=== PATIENT | male | born 1960 | race African-American/Black ===

== ENCOUNTER 2017-03-16 20:55 | Emergency (ER) | payer BC ==
[2017-03-16 21:01] VITALS: BP 129/82; PULSE 102; TEMP 98.3; BMI 26.6
--- NOTE | 2017-03-16 21:38 | PDOC ---
History of Present Illness - General Chief Complaint: Pain Stated Complaint: GOUT Time Seen by Provider: 03/16/17 21:25 History Source: Patient Exam Limitations: No Limitations - History of Present Illness Initial Comments: 03/16/17 21:36 56 yr male with uncontrolled DM states he has pain to both feet right more than left for one month. Pt was seen in ER on 03/06/17 for same treated for gout. Pt states the allopurinol does not help the pain. Pt denies fever, has not followed with his PMD for follow up admits to not taking any meds for DM. Severity: reports: mild Past History - Past Medical History Allergies/Adverse Reactions: Allergies Allergy/AdvReac Type Severity Reaction Status Date / Time No Known Allergies Allergy Verified 03/16/17 20:58 Home Medications: Ambulatory Orders Allopurinol [Zyloprim -] 100 mg PO DAILY 03/16/17 Amlodipine/Atorvastatin [Amlodipine-Atorvast 5-20 mg] 1 each PO ASDIR 03/16/17 HTN: Yes Kidney Stones: Yes - Surgical History Abdominal Surgery: Yes (hernia repair) - Suicide/Smoking/Psychosocial Hx Smoking History: Never smoked *Physical Exam - Vital Signs Last Vital Signs Temp Pulse Resp BP Pulse Ox 98.3 F 102 H 16 129/82 100 03/16/17 20:58 03/16/17 20:58 03/16/17 20:58 03/16/17 20:58 03/16/17 20:58 Medical Decision Making - Medical Decision Making 03/16/17 21:37
[2017-03-16] MEDS ORDERED: ACETAMINOPHEN 325 MG TABLET (FP) PO ONE (22:08)
--- NOTE | 2017-03-16 22:11 | PDOC ---
History of Present Illness - General Chief Complaint: Pain Stated Complaint: GOUT Time Seen by Provider: 03/16/17 21:25 History Source: Patient Exam Limitations: No Limitations - History of Present Illness Initial Comments: 03/16/17 22:13 56yo male patient w/ PmHx: Uncontrolled NIDDM, Gout, HLD with recent ED visit for gout flare up, presents to ED c/o Hyperglycemia. Patient states he believes his sugar is elevated because his right foot is beginning to swell. He denies CP, Abd pain, n/v/d, fever, cough, congestion, back pain, diff breathing , rash, dizziness, dysuria, hematuria, rectal bleeding, or any other complaints at this time. Patient was initially seen and evaluated in [facility] and transferred to main ED due to FSBS: Unable to read due to high levels. Severity: Yes: mild Lower Extremity Pain Location: right: ankle Method of Injury: No: unknown, assault, burn, direct blow, fell, incised, motor vehicle accident, sports injury, twisted, other Modifying Factors: improves with: pain medication. worse with: None, cold therapy, immobilization, rest, other Associated Symptoms: See HPI Lower Ext. Injury Location - Specific Injury Location Ankle: right soft tissue tenderness, right pain, right swelling, left non-tender , bilateral no evidence of injury, bilateral normal inspection, bilateral normal range of motion Extremity Pain Location - Extremity Pain Location Extremity Pain Locations: right: ankle Past History - Travel Traveled outside of the country in the last 30 days: No Close contact w/someone who was outside of country & ill: No - Past Medical History Allergies/Adverse Reactions: Allergies Allergy/AdvReac Type Severity Reaction Status Date / Time No Known Allergies Allergy Verified 03/16/17 20:58 Home Medications: Ambulatory Orders Allopurinol [Zyloprim -] 100 mg PO DAILY 03/16/17 Amlodipine/Atorvastatin [Amlodipine-Atorvast 5-20 mg] 1 each PO ASDIR 03/16/17 HTN: Yes Kidney Stones: Yes - Surgical History Abdominal Surgery: Yes (hernia repair) - Suicide/Smoking/Psychosocial Hx Smoking History: Never smoked Review of Systems - Review of Systems Able to Perform ROS?: Yes Is the patient limited Uzbek proficient: No Musculoskeletal: Yes: Joint Pain All Other Systems: Reviewed and Negative *Physical Exam - Vital Signs Last Vital Signs Temp Pulse Resp BP Pulse Ox 98.3 F 102 H 16 129/82 100 03/16/17 20:58 03/16/17 20:58 03/16/17 20:58 03/16/17 20:58 03/16/17 20:58 - Physical Exam General Appearance: Yes: Nourished, Appropriately Dressed. No: Apparent Distress, Mild Distress, Moderate Distress, Severe Distress Respiratory/Chest: positive: Lungs Clear, Normal Breath Sounds. negative: Chest Tender, Respiratory Distress, Accessory Muscle Use, Labored Respiration, Rapid RR, Paradoxal Breathing, Rhonchi, Stridor, Wheezing Cardiovascular: positive: Regular Rhythm, Regular Rate Musculoskeletal: positive: Normal Inspection. negative: CVA Tenderness, CVA Tenderness (R), CVA Tenderness (L), Vertebral Tenderness Extremity: positive: Normal Capillary Refill, Normal Inspection, Normal Range of Motion, Swelling (Right Ankle). 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 *DC/Admit/Observation/Transfer Diagnosis at time of Disposition: Hyperglycemia - Discharge Dispostion Disposition: HOME Condition at time of disposition: Improved Admit: No - Patient Instructions Printed Discharge Instructions: DI for Hyperglycemia -- Adult Additional Instructions: Follow up with your primary care provider this week for further evaluation. You should consider going on insulin at this time. Your blood sugar is not being controlled and you risk other medical problems arising from uncontrolled blood sugar levels. Return if any concerns for further evaluation. Print Language: SLOVAK
[2017-03-16] MEDS ORDERED: SODIUM CHLORIDE 500 ML IV STA (22:29)
--- NOTE | 2017-03-16 22:31 | PDOC ---
*Physical Exam - Vital Signs Last Vital Signs Temp Pulse Resp BP Pulse Ox 98.3 F 102 H 16 129/82 100 03/16/17 20:58 03/16/17 20:58 03/16/17 20:58 03/16/17 20:58 03/16/17 20:58 ED Treatment Course - LABORATORY CBC & Chemistry Diagram: 03/16/17 22:25 03/16/17 22:25 Medical Decision Making - Medical Decision Making 03/16/17 22:31 agree with care from ALEXY Liu *DC/Admit/Observation/Transfer Diagnosis at time of Disposition: Hyperglycemia - Discharge Dispostion Disposition: HOME Condition at time of disposition: Improved - Referrals Referrals: Nick Goodman MD [Primary Care Provider] - - Patient Instructions Printed Discharge Instructions: DI for Hyperglycemia -- Adult Additional Instructions: Follow up with your primary care provider this week for further evaluation. You should consider going on insulin at this time. Your blood sugar is not being controlled and you risk other medical problems arising from uncontrolled blood sugar levels. Return if any concerns for further evaluation. Print Language: MAORI
[2017-03-16 22:37] LABS: BASOPHIL 0.6 % (0-2.0); EOSINOPHIL 1.1 % (0-4.5); MCH 28.3 pg (25.7-33.7); MCHC 34.3 g/dl (32.0-35.9); MEAN CELL VOLUME 82.6 fl (80-96); MEAN PLT VOLUME 7.7 fl (7.5-11.1); NEUTROPHILS 72.7 % (42.8-82.8); PLATELET COUNT 298 K/MM3 (134-434); RDW 14.4 % (11.9-15.9); WHITE BLOOD COUNT 7.4 K/mm3 (4.0-10.0)
[2017-03-16] MEDS ORDERED: ACETAMINOPHEN 325 MG TABLET (FP) ONE (22:50)
[2017-03-16 23:10] LABS: ALBUMIN 4.4 g/dl (3.4-5.0); ANION GAP 11 (8-16); BILIRUBIN,TOTAL 0.5 mg/dL (0.2-1.0); CALCIUM 9.6 mg/dL (8.5-10.1); CO2 27 mmol/L (21-32); CREATININE 2.1 mg/dL (0.7-1.3); SGOT/AST 10 U/L (15-37); SGPT/ALT 27 U/L (12-78); TOT PROT 8.8 g/dl (6.4-8.2)
[2017-03-16 23:11] LABS: ALK PHOS 85 U/L (45-117)
[2017-03-16 23:25] LABS: GLUCOSE,RANDOM 454 mg/dL (74-106)
[2017-03-16] MEDS ORDERED: INSULIN REGULAR HUMAN 100 UNITS/ML *VIAL IVPUSH ONE (23:26)
== END 2017-03-17 01:41 | disposition home or self-care (01) ==
LOC: JERFT 20:55 → JER 20:55
PROC: 3E033VG Introduction of Insulin into Peripheral Vein, Percutaneous Approach (ICD-10-PCS; principal; 2017-03-16)
PROC: 3E0337Z Introduction of Electrolytic and Water Balance Substance into Peripheral Vein, Percutaneous Approach (ICD-10-PCS; 2017-03-16)
DX: E11.65 Type 2 diabetes mellitus with hyperglycemia (principal); E78.5 Hyperlipidemia, unspecified; M10.9 Gout, unspecified
CPT/HCPCS: 36415; 80053; 85025; 99281-25

== ENCOUNTER 2019-05-27 11:04 | Inpatient (IN) | payer BC ==
[2019-05-27] MEDS ORDERED: SODIUM CHLORIDE 1,000 ML IV SCH (13:15)
--- NOTE | 2019-05-27 13:40 | PDOC ---
Documentation entered by Ave Ruiz SCRIBE, acting as scribe for Jm Lucas MD. Jm Lucas MD: This documentation has been prepared by the Sara ochoa Adrianna, SCRIBE, under my direction and personally reviewed by me in its entirety. I confirm that the documentation accurately reflects all work, treatment, procedures, and medical decision making performed by me. Attending Attestation - Resident Resident Name: Jonathon Santos - ED Attending Attestation I have performed the following: I have examined & evaluated the patient, The case was reviewed & discussed with the resident, I agree w/resident's findings & plan, Exceptions are as noted - HPI HPI: The patient is a 58 year old male, with a significant PMH of uncontrolled NIDDM , Gout, HLD, kidney stones, and HTN, who presents to the ED for evaluation of L sided weakness for 2 days. Patient notes he took 60 units of insulin 3 days ago at night(baseline dose is 40 units), and developed left-sided upper and lower extremity weakness the following morning. He notes he now he has difficulty ambulating secondary to the weakness. He waited until today because he wanted to see if he could "fight it off." Patient notes he had a questionable CVA in 2014, and notes his symptoms today were the same as his prior episode but they resolved. His CT head at that time was negative for any acute pathology, but he did not have MRI done reportedly. He was admitted to [facility] at the time. Patient is not on AC daily. Denies headache, dizziness, CP, SOB, F/C, neck pain, abd pain, urinary sxs, rash , LE edema. Denies recent falls. Allergies: NKA, NKDA Surgical History: Abdominal hernia repair Social History: Denies EtOH, tobacco, or illicit drug use PCP: Dr. Melton - Physicial Exam PE: GENERAL: Awake, alert, and fully oriented, in no acute distress HEAD: No signs of trauma EYES: PERRLA, EOMI, sclera anicteric, conjunctiva clear ENT: Oropharynx clear without exudates. Moist mucosa NECK: Normal ROM, supple, no lymphadenopathy, JVD, or masses LUNGS: Breath sounds equal, clear to auscultation bilaterally. No wheezes, and no crackles HEART: Regular rate and rhythm, normal S1 and S2, no murmurs, rubs or gallops ABDOMEN: Soft, nontender, normoactive bowel sounds. No guarding, no rebound. No masses EXTREMITIES: Normal range of motion, no edema. No clubbing or cyanosis. No cords , erythema, or tenderness BACK: No midline spinal tenderness in cervical/thoracic/lumbar region NEUROLOGICAL: +Right-sided naso-labial flattening. +Left upper extremity pronator drift. +4/5 strength of the left upper and lower extremities. Normal speech, normal sensation to light touch in all 4 extremities, normal cerebellar exam, normal reflexes and tone. SKIN: Warm, Dry, normal turgor, no rashes or lesions noted. - Medical Decision Making 05/27/19 15:33 58-year-old male presents to the emergency department with left-sided weakness. Patient hypertensive on arrival found to have right sided nasolabial fold flattening as well as left-sided weakness and left-sided pronator drift concerning for CVA. Patient is out of the TPA window. CT head is negative. Patient has been given a full dose of aspirin and 80 mg of Lipitor. He is not on any blood thinners at home. Plan to obtain MRI, stroke work-up and admit for further management. The hospitalist has been paged for admission, we are awaiting a call back. Heart Score/ECG Review #1 05/27/19 16:02 Twelve-lead EKG was performed and reviewed by me. Normal sinus rhythm, rate 93. Left axis deviation. No ST elevations. T wave inversions in 1, aVL, 2, V2 to V6. ST depressions in 1 and aVL. No previous EKG to compare. NIH Stroke Scale - Last Known Well Date/Time & Onset Date Last Known Well: 05/25/19 Time Last Known Well: 23:00 - Initial Evaluation Level of consciousness: Alert Ask patient the month and their age: Answers both correctly Ask patient to open & close eyes; make fist and let go: Obeys both correctly Best gaze (horizontal eye movement): Normal Visual field testing: No visual field loss Facial paresis (Show teeth/raise eyebrows/close eyes tight): Minor paralysis ( flattened nasolabial fold, asymmetry on smiling) Motor Function: Left Arm: Drift Motor Function: Right Arm: Normal (extends arm 90 (or 45) degrees for 10 seconds without drift Motor Function: Left Leg: Drift Motor Function: Right Leg: Normal (extends leg 30 degrees for 5 seconds without drift) Limb Ataxia: No ataxia Sensory(Use pinprick test arms,legs,trunk,face/side to side): Normal Best language (Describe picture, name items, read sentences): No Aphasia Dysarthria (read several words): Normal articulation Extinction and Inattention: No abnormality - Total Score NIH Stroke Scale Score: 3 ED Treatment Course - LABORATORY CBC & Chemistry Diagram: 05/27/19 14:00 05/27/19 14:00 - ADDITIONAL ORDERS Additional order review: Laboratory Results 05/27/19 05/27/19 05/27/19 14:00 14:00 14:00 PT with INR INR PTT (Actin FS) Sodium 140 Potassium 4.0 Chloride 100 Carbon Dioxide 32 Anion Gap 8 BUN 21.3 H Creatinine 1.5 H Est GFR (CKD-EPI)AfAm 59.05 Est GFR (CKD-EPI)NonAf 50.95 POC Glucometer Random Glucose 154 H Calcium 10.0 Total Bilirubin 0.8 AST 20 ALT 32 Alkaline Phosphatase 76 Creatine Kinase 266 Creatine Kinase Index 1.8 CK-MB (CK-2) 4.8 H Troponin I 0.03 Total Protein 8.6 H Albumin 4.4 Triglycerides Cholesterol Total LDL Cholesterol HDL Cholesterol Blood Type O POSITIVE Antibody Screen Negative 05/27/19 05/27/19 05/27/19 14:00 14:00 12:28 PT with INR 11.30 INR 0.96 PTT (Actin FS) 39.1 H Sodium Potassium Chloride Carbon Dioxide Anion Gap BUN Creatinine Est GFR (CKD-EPI)AfAm Est GFR (CKD-EPI)NonAf POC Glucometer 208 Random Glucose Calcium Total Bilirubin AST ALT Alkaline Phosphatase Creatine Kinase Creatine Kinase Index CK-MB (CK-2) Troponin I Total Protein Albumin Triglycerides 293 H Cholesterol 275 H Total LDL Cholesterol 182 H HDL Cholesterol 42 Blood Type Antibody Screen 05/27/19 05/27/19 14:00 12:28 RBC 6.42 H MCV 84.8 MCHC 33.5 RDW 14.5 MPV 8.1 Neutrophils % 66.9 Lymphocytes % 25.3 D Monocytes % 6.0 Eosinophils % 1.3 Basophils % 0.5 POC Glucometer 208 - RADIOLOGY Radiograph Interpretation: EXAM#: TYPE/EXAM: RESULT: [id number] RAD/CHEST X-RAY PORTABLE* Chest: Stroke Impression: No acute chest pathology. Reported By: John Melgar MD 05/27/19 13:36 EXAM#: TYPE/EXAM: RESULT: [id number] CT/HEAD CT (STROKE) HISTORY PROVIDED: Rule out CVA IMPRESSION: Normal CT scan of the head with no evidence of acute intracranial pathology. Reported By: Ozzy Addison MD 05/27/19 13:50
--- NOTE | 2019-05-27 13:52 | PDOC ---
History of Present Illness - General Chief Complaint: Pain, Acute Stated Complaint: LEG PAIN Time Seen by Provider: 05/27/19 12:05 History Source: Patient Exam Limitations: No Limitations - History of Present Illness Initial Comments: 58 y/o F, pmh of DM, HTN, gout, HLD, previous TIA, presents today to the ED c/o of left sided weakness and fatigue of 3 day duration that started on which has worsened since onset. Pt reports that on he accidentally took an extra half dose of his normal 40 U insulin making it a 60 dose insulin, soon after which he began to experience his symptoms. Pt noticed his weakness and fatigue worsened the next day which prompted him to come in to the ED. He sees Dr. Melton for his DM, and his surgars usually run in the 200's with todays finger stick in the . His BP is also elevated in the Ed to 168/118, which he says has been elevated since switching his BP meds from omesartan to lisinopril. Pt also reports that he was admitted in the past for hypoglycemia and low BP, during which his blood pressure dropped so low he experienced a possible TIA, however, CAT scans and other imaging were negative as per pt. Denies f/c/n/v/d/sob/chest pain/ numbness or tingling, headaches. 05/27/19 13:47 Associated Symptoms: reports: denies symptoms, weakness. denies: chest pain, cough, diaphoresis, fever/chills, headaches, nausea/vomiting, rash, seizure, shortness of breath Aspirin Received prior to arrival: Yes: no aspirin today Past History - Travel Traveled outside of the country in the last 30 days: No Close contact w/someone who was outside of country & ill: No - Past Medical History Allergies/Adverse Reactions: Allergies Allergy/AdvReac Type Severity Reaction Status Date / Time No Known Allergies Allergy Verified 05/27/19 11:13 Home Medications: Ambulatory Orders Dulaglutide [Trulicity] 5 ml SQ WEEKLY 05/27/19 Empagliflozin [Jardiance] 10 mg PO DAILY 05/27/19 Insulin Glargine,Hum.rec.anlog [Lantus Solostar PEN -] 50 units SQ HS 05/27/19 Lisinopril/Hydrochlorothiazide [Lisinopril-Hctz 20-12.5 mg Tab] 1 each PO HS Anemia: No Asthma: No Cancer: No Cardiac Disorders: No Hx Myocardial Infarction: No COPD: No HTN: Yes Kidney Stones: Yes - Surgical History Abdominal Surgery: Yes (hernia repair) - Psycho Social/Smoking Cessation Hx Have you felt down, depressed or hopeless?: No Have you felt little interest or pleasure in doing things?: No Smoking Status: No Smoking History: Never smoked Review of Systems - Review of Systems Able to Perform ROS?: Yes Is the patient limited Israeli proficient: No Constitutional: Yes: Weakness, Weight Stable. No: Chills, Diaphoresis, Fever HEENTM: No: Blurred Vision, Difficulty Swallowing Respiratory: No: Cough, Orthopnea, Shortness of Breath, SOB with Exertion, Wheezing, Productive cough Cardiac (ROS): No: Chest Pain, Irregular Heart Rate ABD/GI: No: Abdominal Distended, Diarrhea, Nausea, Vomiting : No: Dysuria, Discharge Musculoskeletal: No: Gout, Joint Pain Neurological: Yes: Headache, Weakness (left sided weakness), Unsteady Gait ( unsteady on the left side), Ataxia. No: Numbness *Physical Exam - Vital Signs Last Vital Signs Temp Pulse Resp BP Pulse Ox 98.4 F 108 H 18 151/101 H 95 05/27/19 11:14 05/27/19 13:07 05/27/19 12:24 05/27/19 13:07 05/27/19 12:24 - Physical Exam General Appearance: Yes: Appropriately Dressed HEENT: positive: EOMI, SWAPNIL, Normal ENT Inspection, Pharynx Normal Neck: positive: Trachea midline, Normal Thyroid, Supple. negative: Lymphadenopathy (R), Lymphadenopathy (L) Respiratory/Chest: positive: Lungs Clear, Normal Breath Sounds Cardiovascular: positive: Regular Rhythm, Regular Rate, S1, S2. negative: Murmur, Systolic Murmur, Gallop/S3, Gallop/S4 Vascular Pulses: Dorsalis-Pedis (R): 2+, Doralis-Pedis (L): 2+ Gastrointestinal/Abdominal: positive: Normal Bowel Sounds, Soft. negative: Organomegaly Musculoskeletal: positive: Normal Inspection Extremity: positive: Normal Inspection, Normal Range of Motion Neurologic: positive: civil geotechnical engineer II-XII NML intact, Fully Oriented, Alert, Normal Mood/ Affect. negative: Motor Strength 5/5 (Left UE + LE strength 4/5 sensation 5/5, dorsiflexion LE 5/5, plantar flexion LE 5/5, knee flexion 4/5 left sided, gait unsteady favoring right side, romberg sign negative) ED Treatment Course - LABORATORY CBC & Chemistry Diagram: 05/27/19 14:00 05/27/19 14:00 - ADDITIONAL ORDERS Additional order review: Laboratory Results 05/27/19 12:28 POC Glucometer 208 05/27/19 12:28 POC Glucometer 208 Medical Decision Making - Medical Decision Making 58 y/o F, pmh of DM, HTN, gout, HLD, previous TIA, presents today to the ED c/o of left sided weakness and fatigue of 3 day duration that started on which has worsened since onset #Left sided residual deficit + weakness 2/2 to TIA vs CVA vs chronic deficit r/o stroke Head CT ordered CBC, CMP IVF Lipid profile #HTN elevated BP 168/116 will maintain permissive htn #DM BGMs ISS 05/27/19 15:04 05/27/19 15:07 Discharge - Discharge Information Problems reviewed: Yes Clinical Impression/Diagnosis: TIA (transient ischemic attack) CVA (cerebral vascular accident) Qualifiers: CVA mechanism: unspecified Qualified Code(s): I63.9 - Cerebral infarction, unspecified Condition: Stable - Admission Yes - Follow up/Referral - Patient Discharge Instructions - Post Discharge Activity
[2019-05-27 14:23] LABS: BASO % 0.5 % (0-2.0); EOS % 1.3 % (0-4.5); HEMATOCRIT 54.4 % (35.4-49); HEMOGLOBIN 18.2 GM/dL (11.7-16.9); LYMPH % 25.3 % (8-40); MCH 28.4 pg (25.7-33.7); MCHC 33.5 g/dl (32.0-35.9); MEAN CELL VOLUME 84.8 fl (80-96); MEAN PLT VOLUME 8.1 fl (7.5-11.1); NEUT % 66.9 % (42.8-82.8); PLATELET COUNT 243 K/MM3 (134-434); RBC 6.42 M/mm3 (4.00-5.60); RDW 14.5 % (11.9-15.9); WHITE BLOOD COUNT 5.2 K/mm3 (4.0-10.0)
--- NOTE | 2019-05-27 14:30 | EKG ---
Test Reason : Blood Pressure : / mmHG Vent. Rate : 093 BPM Atrial Rate : 093 BPM P-R Int : 148 ms QRS Dur : 090 ms QT Int : 384 ms P-R-T Axes : 037 -34 143 degrees QTc Int : 477 ms NORMAL SINUS RHYTHM POSSIBLE LEFT ATRIAL ENLARGEMENT LEFT AXIS DEVIATION LEFT VENTRICULAR HYPERTROPHY WITH REPOLARIZATION ABNORMALITY NONSPECIFIC ST ABNORMALITY ABNORMAL ECG NO PREVIOUS ECGS AVAILABLE Confirmed by LALO RENEE MD ([id number]) on 05/27/2019 2:30:49 PM Referred By: Confirmed By:LALO RENEE MD
[2019-05-27 14:40] LABS: INR 0.96 (0.83-1.09); PROTHROMBIN TIME (PATIENT) 11.3 SEC (9.7-13.0)
[2019-05-27 14:43] LABS: ACTIVATED PTT 39.1 SECONDS (25.2-36.5)
[2019-05-27 15:20] LABS: ALBUMIN 4.4 g/dl (3.4-5.0); BILIRUBIN,TOTAL 0.8 mg/dL (0.2-1); BLOOD UREA NITROGEN 21.3 mg/dL (7-18); CREATININE 1.5 mg/dL (0.55-1.3); TOT PROT 8.6 g/dl (6.4-8.2)
[2019-05-27 15:21] LABS: CHOLESTEROL 275 mg/dL (50-200); HDL CHOLESTEROL 42 mg/dL (40-60); LDL CHOLESTEROL (ONLY SJRH) 182 mg/dL (5-100); TRIGLYCERIDES 293 mg/dL (0-150)
[2019-05-27] MEDS ORDERED: ATORVASTATIN CA 80 MG TABLET (FP) PO ONE (15:38)
[2019-05-27] MEDS ORDERED: ASPIRIN 325 MG TABLET PO ONE (15:38)
[2019-05-27] MEDS ORDERED: ASPIRIN 325 MG ENTERIC COATED TABLET (FP) ONE (16:11)
[2019-05-27] MEDS ORDERED: ATORVASTATIN CA 80 MG TABLET (FP) ONE (16:13)
--- NOTE | 2019-05-27 18:14 | HP ---
CHIEF COMPLAINT: Weakness PCP: HISTORY OF PRESENT ILLNESS: 58 y/o M with PMHx of CVA (Residual LLE weakness since 2015), DM with neuropathy , HTN, HLD, Gout presents from home with b/l feet pain and worsening left sided weakness. Patient was in his usual state of health on Wednesday evening. Patient endorses that he does not take his medications as prescribed and on took Trulicity (typically scheduled for wednesday) and 60u Lantus HS ( typically takes 40). On wednesday, he woke with b/l LE Weakness L>R requiring a cane to ambulate, and this prompted him to stop taking all his meds. Wednesday evening he took 45u Lantus. Wednesday morning he woke at 6am with a 9/10 burning pain; Extended from his foot to his knee on the right and encompassed his entire left side. He then tried to perform his ADL's but was unable to do so because of excessive weakness and inability to balance while ambulate prompting him to visit the ED. His only additional complaint is a mild headache, 3/10 that has resolved. Patient mentions his hx of CVA however he feels much different from then. Patient has recently changed PCP's to Dr. Melton. He switched from Benicar to Lisinopril at the advice of his peridontist 1 year ago however he mentions his BP readings are typically high. Denies any recent fevers, chills, chest pain, SOB, nausea, vomiting, diarrhea, constipation. ER course was notable for: (1) NS @ 42, ASA 325, Lipitor 80 (2) (3) Recent Travel: Denies PAST MEDICAL HISTORY: As above PAST SURGICAL HISTORY: Right umbilical hernia repair Lithotripsy Social History: Smoking: Denies Alcohol: Occasional Drugs: Denies Occupation: Retired Ambulation: Without assistance normally; Occasionally with cane when having gout flares Residence: Home with Allergies No Known Allergies Allergy (Verified 05/27/19 11:13) HOME MEDICATIONS: Home Medications Medication Instructions Recorded Dulaglutide [Trulicity] 5 ml SQ WEEKLY 05/27/19 Empagliflozin [Jardiance] 10 mg PO DAILY 05/27/19 Insulin Glargine,Hum.rec.anlog 45 units SQ HS 05/27/19 [Lantus Solostar PEN -] Lisinopril/Hydrochlorothiazide 1 each PO HS 05/27/19 [Lisinopril-Hctz 20-12.5 mg Tab] REVIEW OF SYSTEMS As per HPI PHYSICAL EXAMINATION Vital Signs - 24 hr 05/27/19 05/27/19 05/27/19 11:14 12:24 13:07 Temperature 98.4 F Pulse Rate 98 H Pulse Rate [ Apical] Pulse Rate [ 94 H 108 H Left Brachial] Respiratory 16 18 Rate Blood Pressure 169/118 H Blood Pressure 168/116 H 151/101 H [Left Arm] O2 Sat by Pulse 99 95 Oximetry (%) 05/27/19 05/27/19 05/27/19 13:08 14:08 14:30 Temperature Pulse Rate Pulse Rate [ 85 Apical] Pulse Rate [ 92 H Left Brachial] Respiratory 18 13 Rate Blood Pressure Blood Pressure 161/109 H 150/108 H [Left Arm] O2 Sat by Pulse 100 98 97 Oximetry (%) 05/27/19 05/27/19 16:00 16:28 Temperature Pulse Rate Pulse Rate [ 88 88 Apical] Pulse Rate [ Left Brachial] Respiratory Rate Blood Pressure Blood Pressure 179/113 H 173/106 H [Left Arm] O2 Sat by Pulse Oximetry (%) GENERAL: A&Ox3, NAD HEAD: NCAT EYES: PERRL, EOMI EARS, NOSE, THROAT: Uvula Midline, MMM NECK: No JVD LUNGS: CTAB, No wheezes, no crackles HEART: Regular rate and rhythm, normal S1 and S2 without murmur ABDOMEN: Soft, nontender, not distended, + bowel sounds, no guarding MUSCULOSKELETAL: No CVA tenderness. EXTREMITIES: No peripheral edema. NEUROLOGICAL: Cranial nerves II-XII intact. Normal speech. Mild diminished sensation over left lateral C8 dermatome extending only over his left hand, otherwise gross sensation intact throughout. 2/5 muscle strength in the LLE, otherwise 5/5 muscle strength throughout. Unable to perform Heel to mercado on the left side; right side intact. NIHSS 5. SKIN: Warm, dry Laboratory Results - last 24 hr 05/27/19 05/27/19 05/27/19 12:28 14:00 14:00 WBC RBC Hgb Hct MCV MCH MCHC RDW Plt Count MPV Absolute Neuts (auto) Neutrophils % Lymphocytes % Monocytes % Eosinophils % Basophils % Nucleated RBC % PT with INR 11.30 INR 0.96 PTT (Actin FS) 39.1 H Sodium Potassium Chloride Carbon Dioxide Anion Gap BUN Creatinine Est GFR (CKD-EPI)AfAm Est GFR (CKD-EPI)NonAf POC Glucometer 208 Random Glucose Calcium Total Bilirubin AST ALT Alkaline Phosphatase Creatine Kinase Creatine Kinase Index CK-MB (CK-2) Troponin I Total Protein Albumin Triglycerides 293 H Cholesterol 275 H Total LDL Cholesterol 182 H HDL Cholesterol 42 Blood Type Antibody Screen 05/27/19 05/27/19 05/27/19 14:00 14:00 14:00 WBC 5.2 RBC 6.42 H Hgb 18.2 H Hct 54.4 H D MCV 84.8 MCH 28.4 MCHC 33.5 RDW 14.5 Plt Count 243 MPV 8.1 Absolute Neuts (auto) 3.5 Neutrophils % 66.9 Lymphocytes % 25.3 D Monocytes % 6.0 Eosinophils % 1.3 Basophils % 0.5 Nucleated RBC % 0 PT with INR INR PTT (Actin FS) Sodium Potassium Chloride Carbon Dioxide Anion Gap BUN Creatinine Est GFR (CKD-EPI)AfAm Est GFR (CKD-EPI)NonAf POC Glucometer Random Glucose Calcium Total Bilirubin AST ALT Alkaline Phosphatase Creatine Kinase 266 Creatine Kinase Index 1.8 CK-MB (CK-2) 4.8 H Troponin I 0.03 Total Protein Albumin Triglycerides Cholesterol Total LDL Cholesterol HDL Cholesterol Blood Type O POSITIVE Antibody Screen Negative 05/27/19 14:00 WBC RBC Hgb Hct MCV MCH MCHC RDW Plt Count MPV Absolute Neuts (auto) Neutrophils % Lymphocytes % Monocytes % Eosinophils % Basophils % Nucleated RBC % PT with INR INR PTT (Actin FS) Sodium 140 Potassium 4.0 Chloride 100 Carbon Dioxide 32 Anion Gap 8 BUN 21.3 H Creatinine 1.5 H Est GFR (CKD-EPI)AfAm 59.05 Est GFR (CKD-EPI)NonAf 50.95 POC Glucometer Random Glucose 154 H Calcium 10.0 Total Bilirubin 0.8 AST 20 ALT 32 Alkaline Phosphatase 76 Creatine Kinase Creatine Kinase Index CK-MB (CK-2) Troponin I Total Protein 8.6 H Albumin 4.4 Triglycerides Cholesterol Total LDL Cholesterol HDL Cholesterol Blood Type Antibody Screen Home Medications Medication Instructions Recorded Dulaglutide [Trulicity] 5 ml SQ WEEKLY 05/27/19 Empagliflozin [Jardiance] 10 mg PO DAILY 05/27/19 Insulin Glargine,Hum.rec.anlog 50 units SQ HS 12/21/19 [Lantus Solostar PEN -] Lisinopril/Hydrochlorothiazide 1 each PO HS 05/27/19 [Lisinopril-Hctz 20-12.5 mg Tab] Active Medications Aspirin (Asa -) 81 mg PO DAILY BECKY Atorvastatin Calcium (Lipitor -) 80 mg PO HS BECKY Sodium Chloride (Normal Saline -) 1,000 mls @ 42 mls/hr IV ASDIR BECKY Last Admin: 05/27/19 13:50 Dose: 42 mls/hr Insulin Aspart (Novolog Vial Sliding Scale -) 1 vial SQ ACHS BECKY; Protocol Non-Formulary Medication (Lisinopril/Hydrochlorothiazide [Lisinopril-Hctz 20- 12.5 Mg Tab]) 1 each PO DAILY BECKY ASSESSMENT/PLAN: 58 y/o M with PMHx of CVA (Residual LLE weakness since 2014), DM with neuropathy , HTN, HLD, Gout presents from home with b/l feet pain and worsening left sided weakness. #Burning foot pain b/l with worsening left sided weakness -Concerning for CVA -CT head unrevealing -EKG--NSR, LVH, LAE, LAD, VR 93, QTc 477 -Given ASA 325mg PO x 1, Lipitor 80mg; Continue ASA 81mg daily, Lipitor 80mg daily -Neuro (Dr. Pérez) consulted; Case discussed and agree's with restarting home BP Meds -Check Echo, Carotid Dopplers, Brain MRI/MRA, B12, TSH -Tele -Bedrest, Seizure/Dysphagia/fall precautions, Keep HOB Elevated, Neurochecks -Physical Therapy -Keep NPO until Speech and swallow eval #DM with neuropathy -Possibly Acute flare of neuropathic pain -Hold home dose hypoglycemics -ISS BGMs ACHS, Levemir 30u HS -Gabapentin 300mg BID -Check A1c #HTN, Uncontrolled -Continue home dose Lisinopril, Hydrochlorothiazide -Will consider adding on Norvasc if remains elevated #CKD stage 3 -Cr 1.5. Will reach out to PCP for baseline Cr and consider further workup (UA, Imaging) at that juncture #Polycythemia -Unclear Etiology -Hematology (Dr. Santillan) Consulted #HLD -Continue high dose statin therapy #Gout -Currently not in acute flare, Continue to monitor #FEN -NS @ 42 -Replete Lytes PRN -NPO until speech and swallow eval #PPx -DVT: SCDs Dispo: Admit to Stroke unit ADDENDUM: Informed at 19:40 that MRI Imaging transaction advisory services manager read reveals punctate acute infarction of the right anterior aspects of the medulla oblongata and few small chronic lacunar infartc involving the vy. Case discussed with Dr. Pérez who says to continue ASA, Statin and Normotensive BP. Visit type - Emergency Visit Emergency Visit: Yes ED Registration Date: 05/27/19 Care time: The patient presented to the Emergency Department on the above date and was hospitalized for further evaluation of their emergent condition. - New Patient This patient is new to me today: Yes Date on this admission: 05/28/19 - Critical Care Critical Care patient: No ATTENDING PHYSICIAN STATEMENT I saw and evaluated the patient. I reviewed the resident's note and discussed the case with the resident. I agree with the resident's findings and plan as documented. SUBJECTIVE: OBJECTIVE: ASSESSMENT AND PLAN:
--- NOTE | 2019-05-27 18:31 | PN ---
Teaching Attending Note Name of Resident: Ladi Elliott ATTENDING PHYSICIAN STATEMENT I saw and evaluated the patient. I reviewed the resident's note and discussed the case with the resident. I agree with the resident's findings and plan as documented. SUBJECTIVE: Complains of burning pains R foot (up to ankle) and LUE/LLE along with weakness LLE preventing ambulation. No headache/visual disturbance/nausea/ vomiting. No CP/palpitations/SOB OBJECTIVE: Afebrile, Hemodynamically Stable. Last Vital Signs Temp Pulse Resp BP Pulse Ox 98.2 F 18 L 98 H 169/78 97 05/27/19 17:15 05/27/19 17:15 05/27/19 17:15 05/27/19 17:15 05/27/19 14:30 HEENT - Atraumatic, normocephalic. Heart - S1, S2, soft SM Lungs - clear to auscultation Abdomen - Soft, non-tender. Bowel Sounds normal Extremities - no edema, no calf tenderness. Neuro -AAO x 3. Power reduced 4/5 LLE. Power other extremities normal. Sensory dysthesia LUE/LUE and R foot. Laboratory Results - last 24 hr 05/27/19 05/27/19 05/27/19 12:28 14:00 14:00 WBC RBC Hgb Hct MCV MCH MCHC RDW Plt Count MPV Absolute Neuts (auto) Neutrophils % Lymphocytes % Monocytes % Eosinophils % Basophils % Nucleated RBC % PT with INR 11.30 INR 0.96 PTT (Actin FS) 39.1 H Sodium Potassium Chloride Carbon Dioxide Anion Gap BUN Creatinine Est GFR (CKD-EPI)AfAm Est GFR (CKD-EPI)NonAf POC Glucometer 208 Random Glucose Calcium Total Bilirubin AST ALT Alkaline Phosphatase Creatine Kinase Creatine Kinase Index CK-MB (CK-2) Troponin I Total Protein Albumin Triglycerides 293 H Cholesterol 275 H Total LDL Cholesterol 182 H HDL Cholesterol 42 Blood Type Antibody Screen 05/27/19 05/27/19 05/27/19 14:00 14:00 14:00 WBC 5.2 RBC 6.42 H Hgb 18.2 H Hct 54.4 H D MCV 84.8 MCH 28.4 MCHC 33.5 RDW 14.5 Plt Count 243 MPV 8.1 Absolute Neuts (auto) 3.5 Neutrophils % 66.9 Lymphocytes % 25.3 D Monocytes % 6.0 Eosinophils % 1.3 Basophils % 0.5 Nucleated RBC % 0 PT with INR INR PTT (Actin FS) Sodium Potassium Chloride Carbon Dioxide Anion Gap BUN Creatinine Est GFR (CKD-EPI)AfAm Est GFR (CKD-EPI)NonAf POC Glucometer Random Glucose Calcium Total Bilirubin AST ALT Alkaline Phosphatase Creatine Kinase 266 Creatine Kinase Index 1.8 CK-MB (CK-2) 4.8 H Troponin I 0.03 Total Protein Albumin Triglycerides Cholesterol Total LDL Cholesterol HDL Cholesterol Blood Type O POSITIVE Antibody Screen Negative 05/27/19 14:00 WBC RBC Hgb Hct MCV MCH MCHC RDW Plt Count MPV Absolute Neuts (auto) Neutrophils % Lymphocytes % Monocytes % Eosinophils % Basophils % Nucleated RBC % PT with INR INR PTT (Actin FS) Sodium 140 Potassium 4.0 Chloride 100 Carbon Dioxide 32 Anion Gap 8 BUN 21.3 H Creatinine 1.5 H Est GFR (CKD-EPI)AfAm 59.05 Est GFR (CKD-EPI)NonAf 50.95 POC Glucometer Random Glucose 154 H Calcium 10.0 Total Bilirubin 0.8 AST 20 ALT 32 Alkaline Phosphatase 76 Creatine Kinase Creatine Kinase Index CK-MB (CK-2) Troponin I Total Protein 8.6 H Albumin 4.4 Triglycerides Cholesterol Total LDL Cholesterol HDL Cholesterol Blood Type Antibody Screen Current Medications Generic Name Dose Route Start Last Admin Trade Name Freq PRN Reason Stop Dose Admin Aspirin 81 mg 05/28/19 10:00 Asa - PO DAILY BECKY Atorvastatin Calcium 80 mg 05/28/19 22:00 Lipitor - PO HS [facility] Sodium Chloride 1,000 mls @ 42 mls/hr 05/27/19 13:15 05/27/19 13:50 Normal Saline - IV 42 mls/hr ASDIR [facility] Administration Insulin Aspart 1 vial 05/27/19 22:00 Novolog Vial Sliding Scale - SQ ACHS [facility] Protocol Home Medications Medication Instructions Recorded Dulaglutide [Trulicity] 5 ml SQ WEEKLY 05/27/19 Empagliflozin [Jardiance] 10 mg PO DAILY 05/27/19 Insulin Glargine,Hum.rec.anlog 45 units SQ HS 05/27/19 [Lantus Solostar PEN -] Lisinopril/Hydrochlorothiazide 1 each PO HS 05/27/19 [Lisinopril-Hctz 20-12.5 mg Tab] ASSESSMENT AND PLAN: 58 year old male with history of prior CVA with some residual LLE weakness ( ambulates independently), DM 2 with Neuropathy, HTN, HLD, Gout, CKD, presents after waking this AM with bilateral LE and LUE burning and tingling sensation along with worsening LLE weakness precluding independent ambulation. He admits to random and erratic compliance with all medications including insulin and DM 2 meds. 1. Acute Flare of Diabetic Neuropathy, non-focal Neurology consult. Will start Gabapentin pending Neurology evaluation TSH, B12 levels requested. 2. Worsening LLE weakness - given CVA history, will need to exclude acute CVA. CT head - no acute findings. ECG - NSR, LVH with repolarization abnormalities. Echo, Carotid Duplex, MRI/MRA Head ordered. Telemonitoring Neurochecks. Given non-compliance with ASA, patient was loaded in ED. Continue Aspirin and high dose Statin (LDL 182) Neurology consulted. PT/ST 3. DM 2 with Peripheral Neuropathy Hold Jardiance and Trulicity. Maintain on Levemir/Novolog sliding scale. A1C requested. 4. HTN - Uncontrolled BP currently -will resume HCTZ /Lisinopril and monitor on Tele. May need escalation of anti-hypertensive regimen to include BB and/or CCB. 5. CKD 3 - Creat 1.5. Last Creat in med record 2.1 in 2017. Will need baseline Creat from PCP. Will continue LENI-I/Diuretic for now pending baseline Creat determination. DVT Px - Heparin SQ.
[2019-05-27] MEDS ORDERED: PATIENT'S OWN MEDICATION (NON-FORMULARY) (Lisinopril/Hydrochlorothiazide [Lisinopril-Hctz PO SCH (18:45)
[2019-05-27 19:02] VITALS: BMI 28.2
[2019-05-27] MEDS: LISINOPRIL 20 MG TABLET (FP) PO SCH (19:14)
[2019-05-27] MEDS: HYDROCHLOROTHIAZIDE 12.5 MG CAPSULE (FP) PO SCH (19:14)
[2019-05-27] MEDS: GABAPENTIN 300 MG CAPSULE PO SCH (22:24)
[2019-05-27] MEDS: INSULIN SLIDING SCALE (NOVOLOG) 1 VIAL SQ SCH (22:25)
[2019-05-27] MEDS: INSULIN (LEVEMIR) 100 UNITS/ML UNITS SQ SCH (22:25)
[2019-05-28] MEDS ORDERED: PNEUMOC 13-VAL CONJ-DIP CRM/PF 0.5 ML DISP.SYRIN IM ONE (05:20)
[2019-05-28] MEDS: INSULIN SLIDING SCALE (NOVOLOG) 1 VIAL SQ SCH ×4 (06:31→21:38)
[2019-05-28 07:07] LABS: BASO % 0.4 % (0-2.0); HEMATOCRIT 48.3 % (35.4-49); HEMOGLOBIN 16.3 GM/dL (11.7-16.9); LYMPH % 30.9 % (8-40); MCH 28.5 pg (25.7-33.7); MCHC 33.7 g/dl (32.0-35.9); MEAN CELL VOLUME 84.7 fl (80-96); MEAN PLT VOLUME 7.8 fl (7.5-11.1); MONO % 7.5 % (3.8-10.2); NEUT % 59.2 % (42.8-82.8); PLATELET COUNT 205 K/MM3 (134-434); RDW 14.6 % (11.9-15.9); WHITE BLOOD COUNT 4.6 K/mm3 (4.0-10.0)
[2019-05-28 07:46] LABS: ALBUMIN 3.4 g/dl (3.4-5.0); BILIRUBIN,TOTAL 0.9 mg/dL (0.2-1); BLOOD UREA NITROGEN 19.8 mg/dL (7-18); CALCIUM 8.5 mg/dL (8.5-10.1); CREATININE 1.4 mg/dL (0.55-1.3); MAGNESIUM 2.2 mg/dL (1.8-2.4); PHOSPHOROUS 3.6 mg/dL (2.5-4.9); POTASSIUM 3.6 mmol/L (3.5-5.1); TOT PROT 6.8 g/dl (6.4-8.2)
[2019-05-28] MEDS ORDERED: PNEUMOCOCCAL 23 VACCINE 0.5 ML VIAL IM ONE (08:15)
[2019-05-28] MEDS ORDERED: SODIUM CHLORIDE 1,000 ML IV SCH (08:45)
[2019-05-28] MEDS ORDERED: FLU VACCINE QUAD 60 MCG/0.5 ML (MDV 19-20) IM ONE (10:00)
[2019-05-28] MEDS: ASPIRIN 81 MG CHEWABLE TABLETS PO SCH (11:06)
[2019-05-28] MEDS: GABAPENTIN 300 MG CAPSULE PO SCH ×2 (11:06→21:38)
--- NOTE | 2019-05-28 12:20 | CON.NEURO ---
Consult - Alcohol/Substance Use Hx Alcohol Use: Yes (occasional) - Smoking History Smoking history: Never smoked Home Medications - Allergies Allergies/Adverse Reactions: Allergies Allergy/AdvReac Type Severity Reaction Status Date / Time No Known Allergies Allergy Verified 05/27/19 11:13 - Home Medications Home Medications: Ambulatory Orders Dulaglutide [Trulicity] 5 ml SQ WEEKLY 05/27/19 Empagliflozin [Jardiance] 10 mg PO DAILY 05/27/19 Insulin Glargine,Hum.rec.anlog [Lantus Solostar PEN -] 50 units SQ HS 05/27/19 Lisinopril/Hydrochlorothiazide [Lisinopril-Hctz 20-12.5 mg Tab] 1 each PO HS Physical Exam-Neuro Vital Signs: Vital Signs Temperature 98.1 F 05/28/19 05:00 Pulse Rate 88 05/28/19 05:00 Respiratory Rate 20 05/28/19 05:00 Blood Pressure 159/96 05/28/19 05:00 O2 Sat by Pulse Oximetry (%) 95 05/27/19 20:44 Labs: CBC, BMP 05/28/19 06:20 05/28/19 06:20 INR, PTT INR 0.96 (0.83-1.09) 05/27/19 14:00 Assessment/Plan CC Left sided hemiparesis since May 26 HPI 58 yea rold male with histor of DM, Neuropahty, HTN,HLD, Gout , stroke . Patient has stroke when he went to [facility] last year for ? newly diagnosed dm. He says he took extra dose of insulin and wok eup with left sided hemiparesis. According to patient has has ? stroke in past bu the recovered completely. He is retired as realtor, denies smoking and lives with his in [place]. Patient has mri don and it showed there is right medulla ischemic lesion . There is left sided vertebral narrowing , which does not matches to mri lesion on right side. PAST MEDICAL HISTORY: As above PAST SURGICAL HISTORY: Right umbilical hernia repair Lithotripsy Social History: Smoking: Denies Alcohol: Occasional Drugs: Denies Occupation: Retired Ambulation: Without assistance normally; Occasionally with cane when having gout flares Residence: Home with Allergies No Known Allergies Allergy (Verified 05/27/19 11:13) HOME MEDICATIONS: Home Medications Medication Instructions Recorded Dulaglutide [Trulicity] 5 ml SQ WEEKLY 05/27/19 Empagliflozin [Jardiance] 10 mg PO DAILY 05/27/19 Insulin Glargine,Hum.rec.anlog 45 units SQ HS 05/27/19 [Lantus Solostar PEN -] Lisinopril/Hydrochlorothiazide 1 each PO HS 05/27/19 [Lisinopril-Hctz 20-12.5 mg Tab] ROS,FH,SH reviwed in chart NEUROLOGICAL EXAMINATION Alert oriented x 3, speech is normal, eomi, puils reactiv jigna face asymmetry moving all ext sensation is diminished on left side ct head unremarkable mri of brain showed right medullary ischemic tania, mra of brain , left verbebral narrowing ( does not coorelate with ischemic lesion) Assessment/Plan Right medullary ischemic syndrome, 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
--- NOTE | 2019-05-28 13:08 | PN ---
Physical Exam: SUBJECTIVE: Patient seen and examined, upset that is not able to eat. Still with ongoing left sided weakness and decreased sensation and thinks its because "he has not eaten". Chronic burning both legs, no recent change. OBJECTIVE: Vital Signs Period Temp Pulse Resp BP Sys/Green Pulse Ox Last 24 Hr 97.4 F-98.2 F 18-108 13-98 149-179/78-125 95-100 Intake & Output 05/25/19 05/26/19 05/27/19 05/28/19 23:59 23:59 23:59 23:59 Intake Total 426 Balance 426 Weight 225 lb 12.8 oz 231 lb 4 oz GENERAL: sitting in bed, no acute distress Neck: soft, supple HEENT: PERRL, EOMI Chest: CTAB, no rales or wheezing Abdomen: soft, obese, NT Extremities: no edema Neuro: AAOx3, facial symmetry, tongue midline, speech normal no uvular deviation , decreased sensation left side of face/LUE/LLE, power 4+/5 LLE/LUE, Right 5/5, shoulder shrug 4+/5 left side, toes downgoing, EOMI, PERRL, no nystagmus, left sided pronator drift Laboratory Results - last 24 hr 05/27/19 05/27/19 05/27/19 14:00 14:00 14:00 WBC RBC Hgb Hct MCV MCH MCHC RDW Plt Count MPV Absolute Neuts (auto) Neutrophils % Lymphocytes % Monocytes % Eosinophils % Basophils % Nucleated RBC % PT with INR 11.30 INR 0.96 PTT (Actin FS) 39.1 H Sodium Potassium Chloride Carbon Dioxide Anion Gap BUN Creatinine Est GFR (CKD-EPI)AfAm Est GFR (CKD-EPI)NonAf POC Glucometer Random Glucose Hemoglobin A1c % Calcium Phosphorus Magnesium Total Bilirubin AST ALT Alkaline Phosphatase Creatine Kinase Creatine Kinase Index CK-MB (CK-2) Troponin I Total Protein Albumin Triglycerides 293 H Cholesterol 275 H Total LDL Cholesterol 182 H HDL Cholesterol 42 Vitamin B12 TSH Blood Type O POSITIVE Antibody Screen Negative 05/27/19 05/27/19 05/27/19 14:00 14:00 14:00 WBC 5.2 RBC 6.42 H Hgb 18.2 H Hct 54.4 H D MCV 84.8 MCH 28.4 MCHC 33.5 RDW 14.5 Plt Count 243 MPV 8.1 Absolute Neuts (auto) 3.5 Neutrophils % 66.9 Lymphocytes % 25.3 D Monocytes % 6.0 Eosinophils % 1.3 Basophils % 0.5 Nucleated RBC % 0 PT with INR INR PTT (Actin FS) Sodium 140 Potassium 4.0 Chloride 100 Carbon Dioxide 32 Anion Gap 8 BUN 21.3 H Creatinine 1.5 H Est GFR (CKD-EPI)AfAm 59.05 Est GFR (CKD-EPI)NonAf 50.95 POC Glucometer Random Glucose 154 H Hemoglobin A1c % Calcium 10.0 Phosphorus Magnesium Total Bilirubin 0.8 AST 20 ALT 32 Alkaline Phosphatase 76 Creatine Kinase 266 Creatine Kinase Index 1.8 CK-MB (CK-2) 4.8 H Troponin I 0.03 Total Protein 8.6 H Albumin 4.4 Triglycerides Cholesterol Total LDL Cholesterol HDL Cholesterol Vitamin B12 TSH Blood Type Antibody Screen 05/27/19 05/27/19 05/28/19 20:35 22:21 05:35 WBC RBC Hgb Hct MCV MCH MCHC RDW Plt Count MPV Absolute Neuts (auto) Neutrophils % Lymphocytes % Monocytes % Eosinophils % Basophils % Nucleated RBC % PT with INR INR PTT (Actin FS) Sodium Potassium Chloride Carbon Dioxide Anion Gap BUN Creatinine Est GFR (CKD-EPI)AfAm Est GFR (CKD-EPI)NonAf POC Glucometer 195 157 Random Glucose Hemoglobin A1c % Calcium Phosphorus Magnesium Total Bilirubin AST ALT Alkaline Phosphatase Creatine Kinase Creatine Kinase Index CK-MB (CK-2) Troponin I Total Protein Albumin Triglycerides Cholesterol Total LDL Cholesterol HDL Cholesterol Vitamin B12 TSH Blood Type O POSITIVE Antibody Screen 05/28/19 05/28/19 05/28/19 06:20 06:20 06:20 WBC 4.6 RBC 5.70 H Hgb 16.3 Hct 48.3 MCV 84.7 MCH 28.5 MCHC 33.7 RDW 14.6 Plt Count 205 MPV 7.8 Absolute Neuts (auto) 2.7 Neutrophils % 59.2 Lymphocytes % 30.9 D Monocytes % 7.5 Eosinophils % 2.0 Basophils % 0.4 Nucleated RBC % 1 H PT with INR INR PTT (Actin FS) Sodium 141 Potassium 3.6 Chloride 107 Carbon Dioxide 27 Anion Gap 7 L BUN 19.8 H Creatinine 1.4 H Est GFR (CKD-EPI)AfAm 64.18 Est GFR (CKD-EPI)NonAf 55.38 POC Glucometer Random Glucose 162 H Hemoglobin A1c % 8.8 H Calcium 8.5 Phosphorus 3.6 Magnesium 2.2 Total Bilirubin 0.9 AST 20 ALT 27 Alkaline Phosphatase 61 Creatine Kinase Creatine Kinase Index CK-MB (CK-2) Troponin I Total Protein 6.8 Albumin 3.4 Triglycerides Cholesterol Total LDL Cholesterol HDL Cholesterol Vitamin B12 892 TSH 0.86 Blood Type Antibody Screen 05/28/19 11:55 WBC RBC Hgb Hct MCV MCH MCHC RDW Plt Count MPV Absolute Neuts (auto) Neutrophils % Lymphocytes % Monocytes % Eosinophils % Basophils % Nucleated RBC % PT with INR INR PTT (Actin FS) Sodium Potassium Chloride Carbon Dioxide Anion Gap BUN Creatinine Est GFR (CKD-EPI)AfAm Est GFR (CKD-EPI)NonAf POC Glucometer 270 Random Glucose Hemoglobin A1c % Calcium Phosphorus Magnesium Total Bilirubin AST ALT Alkaline Phosphatase Creatine Kinase Creatine Kinase Index CK-MB (CK-2) Troponin I Total Protein Albumin Triglycerides Cholesterol Total LDL Cholesterol HDL Cholesterol Vitamin B12 TSH Blood Type Antibody Screen Active Medications Home Medications Medication Instructions Recorded Dulaglutide [Trulicity] 5 ml SQ WEEKLY 05/27/19 Empagliflozin [Jardiance] 10 mg PO DAILY 05/27/19 Insulin Glargine,Hum.rec.anlog 50 units SQ HS 05/27/19 [Lantus Solostar PEN -] Lisinopril/Hydrochlorothiazide 1 each PO HS 05/27/19 [Lisinopril-Hctz 20-12.5 mg Tab] Generic Name Dose Route Start Last Admin Trade Name Freq PRN Reason Stop Dose Admin Aspirin 81 mg 05/28/19 10:00 05/28/19 11:06 Asa - PO 81 mg DAILY BECKY Administration Atorvastatin Calcium 80 mg 05/28/19 22:00 Lipitor - PO HS BECKY Gabapentin 300 mg 05/27/19 22:00 05/28/19 11:06 Neurontin - PO 300 mg BID BECKY Administration Hydrochlorothiazide 12.5 mg 05/27/19 18:45 05/27/19 19:14 Hctz - PO 12.5 mg DAILY BECKY Administration Sodium Chloride 1,000 mls @ 75 mls/hr 05/28/19 08:45 05/28/19 11:10 Normal Saline - IV 75 mls/hr ASDIR BECKY Administration Insulin Aspart 1 vial 05/27/19 22:00 05/28/19 06:31 Novolog Vial Sliding Scale - SQ Not Given ACHS BECKY Protocol Insulin Detemir 30 units 05/27/19 22:00 05/27/19 22:25 Levemir Vial SQ Not Given HS REPLACED BY [facility] Lisinopril 20 mg 05/27/19 18:45 05/27/19 19:14 Prinivil PO 20 mg DAILY BECKY Administration Telemetry: NSR, occasional PVCs MRI brain/MRA head results reviewed ASSESSMENT/PLAN: 58 year old male with history of prior CVA with some residual LLE weakness ( ambulates independently), DM 2 with Neuropathy, HTN, HLD, Gout, CKD, presents after waking this AM with bilateral LE and LUE burning and tingling sensation along with worsening LLE weakness precluding independent ambulation. He admits to random and erratic compliance with all medications including insulin and DM 2 meds. -Acute right medullar oblongata CVA -?vertebral artery narrowing -Severe diabetic neuropathy -IDDM -Uncontrolled HTN -CKD stage III (last cr 2.1 in 2017) Plan: Neurology input noted. MRA head noted, however vertebral artery ?narrowing does not corelate with current CVA. MRA neck. ASA/statin. Lipid panel/A1c Permissive HTN x 24 hours, resume ACEi/HCTZ in 24 hours based on BP readings and renal function. Follow up 2D echo. Cleared bedside swallow eval, Patient insists on regular diet, relays understanding of risks of aspiration. at bedside. Continue with close monitoring. Speech/Swallow eval. Trend renal function. Outpatient follow up. Home BP monitoring and medication compliance counseling. levemir, ISS. gabapentin started DVTPPX heparin PT eval noted, for acute rehab Dispo to rehab pending above w/u and clinical course. Plan discussed in detail with patient and at bedside, all questions answered. Visit type - Emergency Visit Emergency Visit: Yes ED Registration Date: 05/27/19 Care time: The patient presented to the Emergency Department on the above date and was hospitalized for further evaluation of their emergent condition. - New Patient This patient is new to me today: Yes Date on this admission: 05/28/19 - Critical Care Critical Care patient: No - Discharge Referral Referred to [facility] Med P.C.: No
[2019-05-28 19:12] LABS: EPI CELLS 2.7 /HPF (0-5/HPF); HYALINE CASTS 4 /lpf (0-8); PH,URINE 5.5 (5.0-8.0); URINE APPEARANCE CLEAR; URINE BACTERIA 63.8 /hpf (NEGATIVE); URINE BILIRUBIN NEGATIVE (NEGATIVE); URINE COLOR YELLOW; URINE GLUCOSE (UA) 3+ (NEGATIVE); URINE KETONE NEGATIVE (NEGATIVE); URINE LEUK ESTERASE 1+ (NEGATIVE); URINE NITRITE NEGATIVE (NEGATIVE); URINE PROTEIN 1+ (NEGATIVE); URINE RBC 4 /hpf (0-4); URINE UROBILINOGEN 0.2 mg/dL (0.2-1.0); URINE WBC 54 /hpf (0-5)
[2019-05-28 19:33] LABS: YEAST 2+ (NEGATIVE)
--- NOTE | 2019-05-28 21:09 | CONSULT ---
Consult Consult Specialty:: Heme Referred by:: Dr. Buckley Reason for Consultation:: Erythrocytosis - History of Present Illness Chief Complaint: L sided weakness History of Present Illness: 58M with PMHx of CVA in 2015, DM c/b neuropathy, HTN, gout admitted with left sided weakness x 4 days. MRI brain without e/o acute CVA. No improvement in weakness so far. Pt reports that , although 2015 CVA presented with LLE weakness , he fully recovered and that current sx are new. Hematology is consulted for erythrocytosis. Hgb was 18.2 on admission; 16.3 today. He thinks he might have been told in the past about high blood counts but is not sure. Denies HAs, blurry vision, pruritis, fevers, night sweats, erythromelalgia. Denies decreased PO intake/vomiting prior to admission. No fam hx of blood disorders. Never smoked. No hx of VTE. Endorses snoring. - Alcohol/Substance Use Hx Alcohol Use: Yes (occasional) - Smoking History Smoking history: Never smoked Home Medications - Allergies Allergies/Adverse Reactions: Allergies Allergy/AdvReac Type Severity Reaction Status Date / Time No Known Allergies Allergy Verified 05/27/19 11:13 - Home Medications Home Medications: Ambulatory Orders Dulaglutide [Trulicity] 5 ml SQ WEEKLY 05/27/19 Empagliflozin [Jardiance] 10 mg PO DAILY 05/27/19 Insulin Glargine,Hum.rec.anlog [Lantus Solostar PEN -] 50 units SQ HS 05/27/19 Lisinopril/Hydrochlorothiazide [Lisinopril-Hctz 20-12.5 mg Tab] 1 each PO HS Review of Systems - Review of Systems Constitutional: reports: No Symptoms, Weakness. denies: Fever, Night Sweats, Unintentional Wgt. Loss Eyes: reports: No Symptoms HENT: reports: No Symptoms Cardiovascular: reports: No Symptoms Respiratory: reports: No Symptoms Gastrointestinal: reports: No Symptoms Neurological: denies: Dizziness, Headache Physical Exam Vital Signs: Vital Signs Temperature 98.5 F 05/28/19 17:00 Pulse Rate 95 H 05/28/19 17:00 Respiratory Rate 20 05/28/19 17:00 Blood Pressure 165/115 H 05/28/19 17:00 O2 Sat by Pulse Oximetry (%) 98 05/28/19 09:00 Constitutional: Yes: Well Nourished, No Distress, Calm Eyes: Yes: Conjunctiva Clear (e) Cardiovascular: Yes: Regular Rate and Rhythm Respiratory: Yes: Regular, CTA Bilaterally Gastrointestinal: Yes: Normal Bowel Sounds, Soft. No: Distention, Hepatomegaly , Splenomegaly, Tenderness Edema: No Labs: CBC, BMP 05/28/19 06:20 05/28/19 06:20 Imaging - Results Cat Scan: Report Reviewed MRI: Report Reviewed Assessment/Plan 58M with HTN, DM, hx of CVA in 2014, admitted with left sided weakness x 4 days. MRI brain without e/o acute CVA. Found to have Hgb 18.2 on admission. Unknown duration. As there are no clear reasons for hemoconcentration on initial labs or for secondary polycythemia (no known lung/heart disease, non- smoker) reasonable to check erythropoietin level and JAK2. If JAK2 negative, would consider a sleep study. On aspirin. Will follow.
[2019-05-28] MEDS: ATORVASTATIN CA 80 MG TABLET (FP) PO SCH (21:38)
[2019-05-28] MEDS: INSULIN (LEVEMIR) 100 UNITS/ML UNITS SQ SCH (21:38)
[2019-05-29] MEDS: INSULIN SLIDING SCALE (NOVOLOG) 1 VIAL SQ SCH ×4 (06:18→21:41)
[2019-05-29 08:19] LABS: BASO % 0.4 % (0-2.0); EOS % 2.1 % (0-4.5); HEMATOCRIT 46.9 % (35.4-49); HEMOGLOBIN 15.8 GM/dL (11.7-16.9); LYMPH % 24.3 % (8-40); MCH 28.6 pg (25.7-33.7); MCHC 33.6 g/dl (32.0-35.9); MONO % 7.4 % (3.8-10.2); NEUT % 65.8 % (42.8-82.8); PLATELET COUNT 196 K/MM3 (134-434); RBC 5.51 M/mm3 (4.00-5.60); RDW 14.6 % (11.9-15.9)
[2019-05-29 08:31] LABS: ALBUMIN 3.4 g/dl (3.4-5.0); BILIRUBIN,TOTAL 0.8 mg/dL (0.2-1); BLOOD UREA NITROGEN 21.2 mg/dL (7-18); CALCIUM 8.7 mg/dL (8.5-10.1); CREATININE 1.4 mg/dL (0.55-1.3); MAGNESIUM 2.7 mg/dL (1.8-2.4); PHOSPHOROUS 3.1 mg/dL (2.5-4.9); POTASSIUM 3.8 mmol/L (3.5-5.1); TOT PROT 6.6 g/dl (6.4-8.2)
--- NOTE | 2019-05-29 09:40 | PN ---
Progress Note (short form) - Note Progress Note: 58 yea kevind male with histor of DM, Neuropahty, HTN,HLD, Gout , stroke . Patient has stroke when he went to [facility] last year for ? newly diagnosed dm. He says he took extra dose of insulin and wok eup with left sided hemiparesis. According to patient has has ? stroke in past bu the recovered completely. He is retired as realtor, denies smoking and lives with his in [place]. Patient has mri don and it showed there is right medulla ischemic lesion . There is left sided vertebral narrowing , which does not matches to mri lesion on right side. Patient fell in bathroom nad is very upset and refused to get any test done. He is sitting in chair and denies any new neurological sypmtoms. NEUROLOGICAL EXAMINATION Alert oriented x 3, speech is normal, eomi, puils reactiv jigna face asymmetry moving all ext sensation is diminished on left side ct head unremarkable mri of brain showed right medullary ischemic tania, mra of brain , left verbebral narrowing ( does not coorelate with ischemic lesion) mra of neck, there is no stenosis Assessment/Plan Right medullary ischemic syndrome, risk factor DM,HTN,HLD, Obesity PLAN: continue apsirin and statin - echo, carotid ultrasound , vascular surgery, unlikely to be surgical candidate - pt, speech and dvt prophylaxis continue current level of care Thanking you so much Denton Pérez MD
--- NOTE | 2019-05-29 10:30 | PN ---
Teaching Attending Note Name of Resident: Robb Alamo ATTENDING PHYSICIAN STATEMENT I saw and evaluated the patient. I reviewed the resident's note and discussed the case with the resident. I agree with the resident's findings and plan as documented with exceptions below. SUBJECTIVE: Patient seen and examined. Upset that not getting better. reports falling on knees while trying to get out of bed, denies head trauma (witnessed by RN) OBJECTIVE: Vital Signs Period Temp Pulse Resp BP Sys/Green Pulse Ox Last 24 Hr 97.7 F-99.4 F 80-107 20-20 134-165/87-115 93 Intake & Output 05/26/19 05/27/19 05/28/19 05/29/19 23:59 23:59 23:59 23:59 Intake Total 426 975 Balance 426 975 Weight 225 lb 12.8 oz 231 lb 4 oz 226 lb 1.6 oz general: AA, no acute distress, speech unchanged, Refused further exam (states "I am the same as before") Psych: angry, frustrated Home Medications Medication Instructions Recorded Dulaglutide [Trulicity] 5 ml SQ WEEKLY 05/27/19 Empagliflozin [Jardiance] 10 mg PO DAILY 05/27/19 Insulin Glargine,Hum.rec.anlog 50 units SQ HS 05/27/19 [Lantus Solostar PEN -] Lisinopril/Hydrochlorothiazide 1 each PO HS 05/27/19 [Lisinopril-Hctz 20-12.5 mg Tab] Active Medications Aspirin (Asa -) 81 mg PO DAILY [facility] Last Admin: 05/28/19 11:06 Dose: 81 mg Atorvastatin Calcium (Lipitor -) 80 mg PO [facility] Last Admin: 05/28/19 21:38 Dose: 80 mg Gabapentin (Neurontin -) 300 mg PO BID [facility] Last Admin: 05/28/19 21:38 Dose: 300 mg Heparin Sodium (Porcine) (Heparin -) 5,000 unit SQ TID [facility] Hydrochlorothiazide (Hctz -) 12.5 mg PO DAILY [facility] Last Admin: 05/27/19 19:14 Dose: 12.5 mg Insulin Aspart (Novolog Vial Sliding Scale -) 1 vial SQ [facility]; Protocol Last Admin: 05/29/19 06:18 Dose: 2 units Insulin Detemir (Levemir Vial) 30 units SQ [facility] Last Admin: 12/22/19 21:38 Dose: 30 units Lisinopril (Prinivil) 20 mg PO DAILY [facility] Last Admin: 05/27/19 19:14 Dose: 20 mg Laboratory Results - last 24 hr 05/28/19 05/28/19 05/28/19 11:55 16:47 18:00 WBC RBC Hgb Hct MCV MCH MCHC RDW Plt Count MPV Absolute Neuts (auto) Neutrophils % Lymphocytes % Monocytes % Eosinophils % Basophils % Nucleated RBC % Sodium Potassium Chloride Carbon Dioxide Anion Gap BUN Creatinine Est GFR (CKD-EPI)AfAm Est GFR (CKD-EPI)NonAf POC Glucometer 270 178 Random Glucose Calcium Phosphorus Magnesium Total Bilirubin AST ALT Alkaline Phosphatase Total Protein Albumin Urine Color Yellow Urine Appearance Clear Urine pH 5.5 Ur Specific [place] 1.035 Urine Protein 1+ H Urine Glucose (UA) 3+ H Urine Ketones Negative Urine Blood Trace Urine Nitrite Negative Urine Bilirubin Negative Urine Urobilinogen 0.2 Ur Leukocyte Esterase 1+ H Urine WBC (Auto) 54 Urine RBC (Auto) 4 Urine Casts (Auto) 4 U Epithel Cells (Auto) 2.7 Urine Bacteria (Auto) 63.8 Urine Yeast (Auto) 2+ 05/28/19 05/29/19 05/29/19 21:37 05:50 06:11 WBC 4.0 RBC 5.51 Hgb 15.8 Hct 46.9 MCV 85.0 MCH 28.6 MCHC 33.6 RDW 14.6 Plt Count 196 MPV 8.0 Absolute Neuts (auto) 2.6 Neutrophils % 65.8 Lymphocytes % 24.3 D Monocytes % 7.4 Eosinophils % 2.1 Basophils % 0.4 Nucleated RBC % 0 Sodium Potassium Chloride Carbon Dioxide Anion Gap BUN Creatinine Est GFR (CKD-EPI)AfAm Est GFR (CKD-EPI)NonAf POC Glucometer 263 192 Random Glucose Calcium Phosphorus Magnesium Total Bilirubin AST ALT Alkaline Phosphatase Total Protein Albumin Urine Color Urine Appearance Urine pH Ur Specific [place] Urine Protein Urine Glucose (UA) Urine Ketones Urine Blood Urine Nitrite Urine Bilirubin Urine Urobilinogen Ur Leukocyte Esterase Urine WBC (Auto) Urine RBC (Auto) Urine Casts (Auto) U Epithel Cells (Auto) Urine Bacteria (Auto) Urine Yeast (Auto) 05/29/19 07:23 WBC RBC Hgb Hct MCV MCH MCHC RDW Plt Count MPV Absolute Neuts (auto) Neutrophils % Lymphocytes % Monocytes % Eosinophils % Basophils % Nucleated RBC % Sodium 142 Potassium 3.8 Chloride 108 H Carbon Dioxide 25 Anion Gap 9 BUN 21.2 H Creatinine 1.4 H Est GFR (CKD-EPI)AfAm 64.18 Est GFR (CKD-EPI)NonAf 55.38 POC Glucometer Random Glucose 184 H Calcium 8.7 Phosphorus 3.1 Magnesium 2.7 H Total Bilirubin 0.8 AST 19 ALT 29 Alkaline Phosphatase 63 Total Protein 6.6 Albumin 3.4 Urine Color Urine Appearance Urine pH Ur Specific [place] Urine Protein Urine Glucose (UA) Urine Ketones Urine Blood Urine Nitrite Urine Bilirubin Urine Urobilinogen Ur Leukocyte Esterase Urine WBC (Auto) Urine RBC (Auto) Urine Casts (Auto) U Epithel Cells (Auto) Urine Bacteria (Auto) Urine Yeast (Auto) MRA neck results reviewed Telemetry: sinus tachycardia, no arrhthymia noted ASSESSMENT AND PLAN: 58 year old male with history of prior CVA with some residual LLE weakness ( ambulates independently), DM 2 with Neuropathy, HTN, HLD, Gout, CKD, presents after waking this AM with bilateral LE and LUE burning and tingling sensation along with worsening LLE weakness precluding independent ambulation. He admits to random and erratic compliance with all medications including insulin and DM 2 meds. -Acute right medullar oblongata CVA -Severe diabetic neuropathy -Polycythemia, improved -IDDM -Uncontrolled HTN -CKD stage II-III (last cr 2.1 in 2017) Plan: MRI brain/MRA head/neck/Carotid duplex noted. Neurology input noted ASA/high intensity statin. Resume lisinopril/HCTZ. Will add beta lesley if elevated BP. A1c 8.8. Increase levemir to home dose 50 units hs. ISS. diabetic diet Diabetic education/counseling. Neurology input noted. Permissive HTN x 24 hours, resume ACEi/HCTZ in 24 hours based on BP readings and renal function. Follow up 2D echo. Speech/swallow eval. Renal function stable. Outpatient follow up. Home BP monitoring and medication compliance counseling. Gabapentin started DVTPPX heparin PT eval noted, for acute rehab Dispo to rehab in 24 hours pendign above w/u if no new concerns. Plan discussed with patient.
--- NOTE | 2019-05-29 10:32 | CONSULT ---
Admitting History and Physical - Primary Care Physician PCP: Elin Mason - Admission History of Present Illness: 58 y/o M with PMHx of CVA (Residual LLE weakness since 2015), DM with neuropathy , HTN, HLD, Gout presents from home with b/l feet pain and wok eup with left sided hemiparesis ct head unremarkable mri of brain showed right medullary ischemic lesion, mra of brain , left vertebral narrowing ( does not correlate with ischemic lesion) mra of neck, there is no stenosis Selected Entries 05/28/19 05/28/19 05/28/19 00:00 01:55 05:00 Temperature 98 F 98.1 F Blood Pressure 158/106 H 161/92 159/96 05/28/19 05/28/19 05/28/19 14:10 17:00 21:00 Temperature 98.2 F 98.5 F 99.4 F Blood Pressure 139/99 165/115 H 136/101 H 05/29/19 05/29/19 02:00 06:00 Temperature 97.7 F 97.8 F Blood Pressure 134/87 158/104 H Laboratory Tests 05/29/19 05:50 WBC 4.0 History Source: Patient, Family Member, Medical Record Limitations to Obtaining History: No Limitations - Smoking History Smoking history: Never smoked - Alcohol/Substance Use Hx Alcohol Use: Yes (occasional) History - Admission Reason For Visit: TRANSIENT ISCHENIC ATTCK,CEREBRASCULAR ACCICENT - Diagnostics X-ray: Report Reviewed CT Scan: Report Reviewed MRI: Report Reviewed (right medullary ischemic lesion) - General Mental Status: Alert and Oriented, Awake and Alert, Able to Follow Commands Attention: Intact Ability to Follow Directions: Good Head/Neck Control: WFL - Hearing Hearing: Normal Speech Evaluation - Communication Primary Language: SL[place] Communication: Yes: Within Normal Limits Oral Expression Ability: Yes: No Impairment - Speech Production Able to Make Needs Known: Yes: WNL Intelligibility: Yes: WNL - Speech Characteristics Voice Loudness: Mildly Soft/Quiet Voice Pitch: Yes: Normal Voice Phonatory-based Quality: Yes: Dysphonia (mild) Speech Clarity: < 100% Nasal Resonance: Normal Articulation: Yes: Precise Rate of Speech: Intact - Language/Auditory Comprehension Follows: Yes: 2 Stage Simple Commands Observation: Able to respond to yes/no queries: Yes, Yes/No Confusion: No, Comprehends Conversational Speech: Yes - Language/Verbal Expression Able to Respond to Simple Queries: Yes: WNL Able to Communicate Wants and Needs: Yes: WNL Functional Communication Status: Yes: WNL - Swallow Evaluation/Bedside Assessment Current Nutritional Intake: Regular, Thin Liquids Oral Secretions: Yes: WFL Dentition: Yes: Adequate Facial Symmetry at Rest: Symmetrical Facial Symmetry on Retraction: Symmetrical Facial Movement: Controlled Against Resistance Opening: Normal Against Resistance Closing: Normal Pucker Lips: Normal Smile: Normal Lingual Movement: Normal, Deviates Left (slight) Lingual Speed of Movement: Normal Lingual Movement Strgth Against Opposition: Normal Lingual Movement Characteristics: Normal Velopharyngeal Movement: Normal Laryngeal Movement: Able to Palpate Rate of Intake: WFL Bolus Size: WFL Labial Seal: WFL Chewing: WFL Oral Prep Time: WFL A-P Transit: WFL Pocketing: None Timing of Swallow: WFL Coughing/Throat Clear: No (3 oz water (-)) Change in Voice: No Recommendations - Speech Evaluation, Impression/Plan Impression: right medullary ischemic lesion. Mild Dysphonia. Denies Dysphagia/ cough,. 3 oz water test (-) - Disposition [facility] to: [facility] - Dysphagia Impressions/Plan Swallowing Skills: WFL Dysphagia Impressions: No Impairment *Silent aspiration: cannot be R/O at bedside Recommendations: Modified Barium Swallow (IF cough, congestion, fever to r/o silent aspiration sec to right medullary ischemic lesion) - Recommendations Diet Consistency: Regular Medication Administration: Whole with water Liquids: Thin Liquids
[2019-05-29] MEDS: HYDROCHLOROTHIAZIDE 12.5 MG CAPSULE (FP) PO SCH ×2 (11:26→12:17)
[2019-05-29] MEDS: GABAPENTIN 300 MG CAPSULE PO SCH ×3 (11:26→21:41)
[2019-05-29] MEDS: ASPIRIN 81 MG CHEWABLE TABLETS PO SCH ×2 (11:26→12:16)
[2019-05-29] MEDS: LISINOPRIL 20 MG TABLET (FP) PO SCH ×2 (11:26→12:17)
--- NOTE | 2019-05-29 12:49 | PN ---
Physical Exam: SUBJECTIVE: Patient seen and examined at bed side , sitting in chairs , denies any history of smoking , lungs or heart disease , no family history of blood disorder , this is second time with ischemic stroke. presented with left side weakness nubness and tingling. OBJECTIVE: Vital Signs Period Temp Pulse Resp BP Sys/Green Pulse Ox Last 24 Hr 97.7 F-99.4 F 80-107 20-20 134-165/87-115 93 GENERAL: The patient is awake, alert, and fully oriented, in no acute distress.sitting in chair, HEAD: Normal with no signs of trauma. EYES: PERRL, extraocular movements intact, sclera anicteric, conjunctiva clear. ENT: moist mucous membranes. NECK: Trachea midline, full range of motion, supple. LUNGS: Breath sounds equal, clear to auscultation bilaterally, no wheezes, no crackles, no accessory muscle use. HEART: Regular rate and rhythm, S1, S2 without murmur, rub or gallop. ABDOMEN: Soft, nontender, nondistended, normoactive bowel sounds, EXTREMITIES: 2+ pulses, warm, well-perfused, no edema. right side 5/5 proximal and distal, left side 2/5 proximal and distal, decrease sensation in left extremeties NEUROLOGICAL: Cranial nerves II through XII grossly intact. Normal speech, gait not observed.left side extremeties weakness 2-3/5 , PSYCH: Normal mood, normal affect. SKIN: Warm, dry, Laboratory Results - last 24 hr 05/28/19 05/28/19 05/28/19 16:47 18:00 21:37 WBC RBC Hgb Hct MCV MCH MCHC RDW Plt Count MPV Absolute Neuts (auto) Neutrophils % Lymphocytes % Monocytes % Eosinophils % Basophils % Nucleated RBC % Sodium Potassium Chloride Carbon Dioxide Anion Gap BUN Creatinine Est GFR (CKD-EPI)AfAm Est GFR (CKD-EPI)NonAf POC Glucometer 178 263 Random Glucose Calcium Phosphorus Magnesium Total Bilirubin AST ALT Alkaline Phosphatase Total Protein Albumin Urine Color Yellow Urine Appearance Clear Urine pH 5.5 Ur Specific [place] 1.035 Urine Protein 1+ H Urine Glucose (UA) 3+ H Urine Ketones Negative Urine Blood Trace Urine Nitrite Negative Urine Bilirubin Negative Urine Urobilinogen 0.2 Ur Leukocyte Esterase 1+ H Urine WBC (Auto) 54 Urine RBC (Auto) 4 Urine Casts (Auto) 4 U Epithel Cells (Auto) 2.7 Urine Bacteria (Auto) 63.8 Urine Yeast (Auto) 2+ 05/29/19 05/29/19 05/29/19 05:50 06:11 07:23 WBC 4.0 RBC 5.51 Hgb 15.8 Hct 46.9 MCV 85.0 MCH 28.6 MCHC 33.6 RDW 14.6 Plt Count 196 MPV 8.0 Absolute Neuts (auto) 2.6 Neutrophils % 65.8 Lymphocytes % 24.3 D Monocytes % 7.4 Eosinophils % 2.1 Basophils % 0.4 Nucleated RBC % 0 Sodium 142 Potassium 3.8 Chloride 108 H Carbon Dioxide 25 Anion Gap 9 BUN 21.2 H Creatinine 1.4 H Est GFR (CKD-EPI)AfAm 64.18 Est GFR (CKD-EPI)NonAf 55.38 POC Glucometer 192 Random Glucose 184 H Calcium 8.7 Phosphorus 3.1 Magnesium 2.7 H Total Bilirubin 0.8 AST 19 ALT 29 Alkaline Phosphatase 63 Total Protein 6.6 Albumin 3.4 Urine Color Urine Appearance Urine pH Ur Specific [place] Urine Protein Urine Glucose (UA) Urine Ketones Urine Blood Urine Nitrite Urine Bilirubin Urine Urobilinogen Ur Leukocyte Esterase Urine WBC (Auto) Urine RBC (Auto) Urine Casts (Auto) U Epithel Cells (Auto) Urine Bacteria (Auto) Urine Yeast (Auto) 05/29/19 12:15 WBC RBC Hgb Hct MCV MCH MCHC RDW Plt Count MPV Absolute Neuts (auto) Neutrophils % Lymphocytes % Monocytes % Eosinophils % Basophils % Nucleated RBC % Sodium Potassium Chloride Carbon Dioxide Anion Gap BUN Creatinine Est GFR (CKD-EPI)AfAm Est GFR (CKD-EPI)NonAf POC Glucometer 169 Random Glucose Calcium Phosphorus Magnesium Total Bilirubin AST ALT Alkaline Phosphatase Total Protein Albumin Urine Color Urine Appearance Urine pH Ur Specific [place] Urine Protein Urine Glucose (UA) Urine Ketones Urine Blood Urine Nitrite Urine Bilirubin Urine Urobilinogen Ur Leukocyte Esterase Urine WBC (Auto) Urine RBC (Auto) Urine Casts (Auto) U Epithel Cells (Auto) Urine Bacteria (Auto) Urine Yeast (Auto) Active Medications Generic Name Dose Route Start Last Admin Trade Name Freq PRN Reason Stop Dose Admin Aspirin 81 mg 05/28/19 10:00 05/29/19 12:16 Asa - PO 81 mg DAILY BECKY Administration Atorvastatin Calcium 80 mg 05/28/19 22:00 05/28/19 21:38 Lipitor - PO 80 mg HS BECKY Administration Docusate Sodium 100 mg 05/29/19 11:30 Colace - PO DAILY BECKY Gabapentin 300 mg 05/27/19 22:00 05/29/19 12:16 Neurontin - PO 300 mg BID BECKY Administration Heparin Sodium (Porcine) 5,000 unit 05/29/19 14:00 Heparin - SQ TID BECKY Hydrochlorothiazide 12.5 mg 05/27/19 18:45 05/29/19 12:17 Hctz - PO 12.5 mg DAILY BECKY Administration Insulin Aspart 1 vial 05/27/19 22:00 05/29/19 12:44 Novolog Vial Sliding Scale - SQ 2 units ACHS BECKY Administration Protocol Insulin Detemir 50 units 05/29/19 22:00 Levemir Vial SQ HS BECKY Lisinopril 20 mg 05/27/19 18:45 05/29/19 12:17 Prinivil PO 20 mg DAILY BECKY Administration Senna 1 tab 05/29/19 11:15 Senna - PO BID BECKY CBC, BMP 05/29/19 05:50 05/29/19 07:23 ASSESSMENT/PLAN: 58 year old male with history of prior CVA with some residual LLE weakness ( ambulates independently), DM 2 with Neuropathy, HTN, HLD, Gout, CKD, presents with left side numbness and tingling admitted for R medullar ischemia . Heme consulted for polycythemia # Poly cythemia , unknown etiology , improved with hydration * follow up erythropiotin and Tom 2 mutation, ldh . bcr/abl * denies any history of smoking , hypoxia lung or heart disease * cot statin and ASA * sleep study * renal US * LDH, UA , Jak2 , BCR ABL * carboxyhemoglobin #Acute right medullar [place] CVA #Severe diabetic neuropathy #IDDM #Uncontrolled HTN #CKD stage II-III (last cr 2.1 in 2017) per primary team Visit type - Emergency Visit Emergency Visit: Yes ED Registration Date: 05/27/19 Care time: The patient presented to the Emergency Department on the above date and was hospitalized for further evaluation of their emergent condition. - New Patient This patient is new to me today: Yes Date on this admission: 05/29/19 - Critical Care Critical Care patient: No - Discharge Referral Referred to [facility] Med P.C.: No ATTENDING PHYSICIAN STATEMENT I saw and evaluated the patient. I reviewed the resident's note and discussed the case with the resident. I agree with the resident's findings and plan as documented. SUBJECTIVE: OBJECTIVE: ASSESSMENT AND PLAN:
[2019-05-29] MEDS: DOCUSATE SODIUM 100 MG CAPSULE (FP) PO SCH (12:53)
[2019-05-29] MEDS: SENNOSIDES 8.6MG TABLET (FP) PO SCH ×2 (12:53→21:42)
[2019-05-29] MEDS: HEPARIN NA (PORCINE) 5,000 UNITS/ML 1ML VIAL SQ SCH ×2 (14:40→21:41)
[2019-05-29] MEDS ORDERED: METOPROLOL TARTRATE 25 MG TABLET (FP) PO ONE (16:33)
[2019-05-29] MEDS ORDERED: PT OWN MED DRAWER 7, Y5N ONE (16:54)
--- NOTE | 2019-05-29 17:26 | PN ---
Physical Exam: SUBJECTIVE: Patient seen and examined. Patient angry that he is not getting better. Explained to him that he has had a stoke and this will take time to recover from. Not fully cooperative with interview and exam. OBJECTIVE: Vital Signs Period Temp Pulse Resp BP Sys/Green Pulse Ox Last 24 Hr 97.7 F-99.4 F 80-107 20-20 134-167/87-113 93 GENERAL: The patient is awake, alert, and fully oriented, in no acute distress. agitated. HEAD: Normal with no signs of trauma. EYES: PERRL, EOMI ENT: MMM NECK: Trachea midline, supple LUNGS: Breath sounds equal, clear to auscultation bilaterally, no wheezes, no crackles, no accessory muscle use. HEART: Regular rate and rhythm, S1, S2 without murmur, rub or gallop. ABDOMEN: Soft, nontender, nondistended, normoactive bowel sounds, no guarding EXTREMITIES: 2+ pulses, warm, well-perfused, no edema. NEUROLOGICAL: unable to complete as patient not cooperative with exam. Decreased sensation of left side of face and body. 2/5 strength up LUE and LLE. 5/5 strength RUE, RLE. No facial droop noted. PSYCH: agitated, annoyed mood SKIN: Warm, dry, normal turgor Laboratory Results - last 24 hr 05/28/19 05/28/19 05/29/19 18:00 21:37 05:50 WBC 4.0 RBC 5.51 Hgb 15.8 Hct 46.9 MCV 85.0 MCH 28.6 MCHC 33.6 RDW 14.6 Plt Count 196 MPV 8.0 Absolute Neuts (auto) 2.6 Neutrophils % 65.8 Lymphocytes % 24.3 D Monocytes % 7.4 Eosinophils % 2.1 Basophils % 0.4 Nucleated RBC % 0 Carboxyhemoglobin Sodium Potassium Chloride Carbon Dioxide Anion Gap BUN Creatinine Est GFR (CKD-EPI)AfAm Est GFR (CKD-EPI)NonAf POC Glucometer 263 Random Glucose Calcium Phosphorus Magnesium Total Bilirubin AST ALT Alkaline Phosphatase Total Protein Albumin Urine Color Yellow Urine Appearance Clear Urine pH 5.5 Ur Specific [place] 1.035 Urine Protein 1+ H Urine Glucose (UA) 3+ H Urine Ketones Negative Urine Blood Trace Urine Nitrite Negative Urine Bilirubin Negative Urine Urobilinogen 0.2 Ur Leukocyte Esterase 1+ H Urine WBC (Auto) 54 Urine RBC (Auto) 4 Urine Casts (Auto) 4 U Epithel Cells (Auto) 2.7 Urine Bacteria (Auto) 63.8 Urine Yeast (Auto) 2+ 05/29/19 05/29/19 05/29/19 06:11 07:23 12:15 WBC RBC Hgb Hct MCV MCH MCHC RDW Plt Count MPV Absolute Neuts (auto) Neutrophils % Lymphocytes % Monocytes % Eosinophils % Basophils % Nucleated RBC % Carboxyhemoglobin Sodium 142 Potassium 3.8 Chloride 108 H Carbon Dioxide 25 Anion Gap 9 BUN 21.2 H Creatinine 1.4 H Est GFR (CKD-EPI)AfAm 64.18 Est GFR (CKD-EPI)NonAf 55.38 POC Glucometer 192 169 Random Glucose 184 H Calcium 8.7 Phosphorus 3.1 Magnesium 2.7 H Total Bilirubin 0.8 AST 19 ALT 29 Alkaline Phosphatase 63 Total Protein 6.6 Albumin 3.4 Urine Color Urine Appearance Urine pH Ur Specific [place] Urine Protein Urine Glucose (UA) Urine Ketones Urine Blood Urine Nitrite Urine Bilirubin Urine Urobilinogen Ur Leukocyte Esterase Urine WBC (Auto) Urine RBC (Auto) Urine Casts (Auto) U Epithel Cells (Auto) Urine Bacteria (Auto) Urine Yeast (Auto) 05/29/19 15:44 WBC RBC Hgb Hct MCV MCH MCHC RDW Plt Count MPV Absolute Neuts (auto) Neutrophils % Lymphocytes % Monocytes % Eosinophils % Basophils % Nucleated RBC % Carboxyhemoglobin 0.9 Sodium Potassium Chloride Carbon Dioxide Anion Gap BUN Creatinine Est GFR (CKD-EPI)AfAm Est GFR (CKD-EPI)NonAf POC Glucometer Random Glucose Calcium Phosphorus Magnesium Total Bilirubin AST ALT Alkaline Phosphatase Total Protein Albumin Urine Color Urine Appearance Urine pH Ur Specific [place] Urine Protein Urine Glucose (UA) Urine Ketones Urine Blood Urine Nitrite Urine Bilirubin Urine Urobilinogen Ur Leukocyte Esterase Urine WBC (Auto) Urine RBC (Auto) Urine Casts (Auto) U Epithel Cells (Auto) Urine Bacteria (Auto) Urine Yeast (Auto) Active Medications Generic Name Dose Route Start Last Admin Trade Name Freq PRN Reason Stop Dose Admin Aspirin 81 mg 05/28/19 10:00 05/29/19 12:16 Asa - PO 81 mg DAILY BECKY Administration Atorvastatin Calcium 80 mg 05/28/19 22:00 05/28/19 21:38 Lipitor - PO 80 mg HS BECKY Administration Docusate Sodium 100 mg 05/29/19 11:30 05/29/19 12:53 Colace - PO Not Given DAILY [facility] Gabapentin 300 mg 05/27/19 22:00 05/29/19 12:16 Neurontin - PO 300 mg BID BECKY Administration Heparin Sodium (Porcine) 5,000 unit 05/29/19 14:00 05/29/19 14:40 Heparin - SQ 5,000 unit TID BECKY Administration Hydrochlorothiazide 12.5 mg 05/27/19 18:45 05/29/19 12:17 Hctz - PO 12.5 mg DAILY BECKY Administration Insulin Aspart 1 vial 05/27/19 22:00 05/29/19 12:44 Novolog Vial Sliding Scale - SQ 2 units ACHS BECKY Administration Protocol Insulin Detemir 50 units 05/29/19 22:00 Levemir Vial SQ HS [facility] Lisinopril 20 mg 05/27/19 18:45 05/29/19 12:17 Prinivil PO 20 mg DAILY BECKY Administration Senna 1 tab 05/29/19 11:15 05/29/19 12:53 Senna - PO Not Given BID [facility] ASSESSMENT/PLAN: 58 y/o M with PMHx of CVA (Residual LLE weakness since 2014), DM with neuropathy , HTN, HLD, Gout presented from home with b/l feet pain and worsening left sided weakness. #Burning foot pain b/l with worsening left sided weakness 2/2 nonhemorrhagic infarct - MRI revealing acute small nonhemorrhagic infarct in anterior aspect of R medulla. Ischemic changes 2/2 long standing HTN noted - MRI/MRA head/neck - segment of left vertebral artery noted to be narrowed compared to right side. Minimal hypoplastic changes of the artery with no evidence of severe stenosis. - Carotid U/S - normal, no evidence of hemodynamically significant stenosis - CT head was unrevealing - EKG--NSR, LVH, LAE, LAD, VR 93, QTc 477 - Continue ASA 81mg daily, Lipitor 80mg daily - Neuro (Dr. Pérez) consulted, recs appreciated - Can follow up with NSx outpatient - Bedrest, Seizure/Dysphagia/fall precautions, Keep HOB Elevated, Neurochecks - Physical Therapy #DM with neuropathy - Possibly Acute flare of neuropathic pain - Hold home dose hypoglycemics - ISS BGMs ACHS, Levemir 50u HS - Gabapentin 300mg BID - A1c 8.8 #HTN, Uncontrolled - Continue home dose Lisinopril, Hydrochlorothiazide - Ordered 12.5mg Metroprolol for BP control. Can consider standing dose if continues to be hypertensive. Patient has had nonsustained tachycardia intermittently. #CKD stage 3 - Cr improved to 1.4 from 1.5 - Continue to monitor - Will reach out to PCP for baseline Cr and consider further workup (UA, Imaging ) at that juncture #Polycythemia - Unclear Etiology - Hematology (Dr. Santillan) Consulted - Improving with hydration - Heme/Onc recommending f/u with EPO level and Tom 2 testing. If negative then can get sleep study. - continue ASA and statin as per heme/onc - Renal U/S ordered #HLD - Continue high dose statin therapy #Gout - Currently not in acute flare, Continue to monitor #FEN - Replete Lytes PRN - Diabetic/Sodium controlled diet #PPx - Heparin #Disposition - D/C pending placement to rehab Visit type - Emergency Visit Emergency Visit: Yes ED Registration Date: 05/27/19 Care time: The patient presented to the Emergency Department on the above date and was hospitalized for further evaluation of their emergent condition. - New Patient This patient is new to me today: Yes Date on this admission: 05/29/19 - Critical Care Critical Care patient: No ATTENDING PHYSICIAN STATEMENT I saw and evaluated the patient. I reviewed the resident's note and discussed the case with the resident. I agree with the resident's findings and plan as documented. SUBJECTIVE: OBJECTIVE: ASSESSMENT AND PLAN:
--- NOTE | 2019-05-29 21:04 | PN ---
Progress Note (short form) - Note Progress Note: Patient seen and examined Denies any complaints Afebrile, hypertensive Cor: RSR, No murmurs, No gallops Lungs: Clear to P&A Abd: Soft, Normal bowel sounds, No organomegaly Ext:No significant edema LAbs/meds reviewed A/P 58M with HTN, DM, hx of CVA in 2014, admitted with left sided weakness x 4 days. MRI brain without e/o acute CVA. Found to have Hgb 18.2 on admission. Normalized since Suspect hemoconcentration Hct normal in 2014- Aslo on multivitamin with iron --- would check iron studies . ? 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 on asa/statin
[2019-05-29] MEDS ORDERED: INSULIN (NOVOLOG) ASPART 100 UNITS/ML 10ML VIAL ONE (21:24)
[2019-05-29] MEDS: ATORVASTATIN CA 80 MG TABLET (FP) PO SCH (21:41)
[2019-05-29] MEDS ORDERED: INSULIN (LEVEMIR) 100 UNITS/ML UNITS SQ SCH (22:00)
[2019-05-29] MEDS ORDERED: PATIENT'S OWN MEDICATION (NON-FORMULARY) (Insulin Glargine,Hum.Rec.Anlog 50 UNITS) SQ SCH (22:00)
[2019-05-30] MEDS: INSULIN SLIDING SCALE (NOVOLOG) 1 VIAL SQ SCH ×3 (06:36→17:00)
[2019-05-30] MEDS: HEPARIN NA (PORCINE) 5,000 UNITS/ML 1ML VIAL SQ SCH ×2 (06:36→14:49)
--- NOTE | 2019-05-30 07:42 | PN ---
Progress Note (short form) - Note Progress Note: 58 yea kevind male with histor of DM, Neuropahty, HTN,HLD, Gout , stroke . Patient has stroke when he went to [facility] last year for ? newly diagnosed dm. He says he took extra dose of insulin and wok eup with left sided hemiparesis. According to patient has has ? stroke in past bu the recovered completely. He is retired as realtor, denies smoking and lives with his in [place]. Patient has mri don and it showed there is right medulla ischemic lesion . There is left sided vertebral narrowing , which does not matches to mri lesion on right side. Patient seems to be paranoid that people has been bad to him and everyone is here to get him. He is complaining that his right side is painful and hospital make it worse NEUROLOGICAL EXAMINATION Alert oriented x 3, speech is normal, eomi, puils reactiv jigna face asymmetry moving all ext sensation is diminished on left side ( no right sided weakness identified) ct head unremarkable mri of brain showed right medullary ischemic tania, mra of brain , left verbebral narrowing ( does not coorelate with ischemic lesion) mra of neck, there is no stenosis Assessment/Plan Right medullary ischemic syndrome, risk factor DM,HTN,HLD, Obesity PLAN: continue apsirin and statin vascular surgery, unlikely to be surgical candidate - pt, speech and dvt prophylaxis continue current level of care waiting for placement Thanking you so much Denton Pérez MD
[2019-05-30 09:05] VITALS: BP 163/97; PULSE 92; TEMP 98
[2019-05-30] MEDS ORDERED: METOPROLOL TARTRATE 25 MG TABLET (FP) PO SCH (10:00)
--- NOTE | 2019-05-30 10:02 | PN ---
Progress Note, [facility]PA[facility] - Note Progress Note: Selected Entries 05/29/19 05/29/19 05/29/19 02:00 06:00 11:47 Breakfast 100% Diet Tolerated Well Supper Temperature 97.7 F 97.8 F 05/29/19 05/29/19 05/30/19 14:00 18:00 02:00 Breakfast Diet Tolerated Well Supper 100% Temperature 97.9 F 97.7 F 97.7 F 05/30/19 05/30/19 05/30/19 06:00 08:49 08:50 Breakfast Diet Tolerated Supper Temperature 98.0 F 98.1 F 98.0 F Laboratory Tests 05/29/19 05:50 WBC 4.0 On reg diet/thin liquids. No difficulty reported or observed.
[2019-05-30] MEDS: ASPIRIN 81 MG CHEWABLE TABLETS PO SCH (10:37)
[2019-05-30] MEDS: HYDROCHLOROTHIAZIDE 12.5 MG CAPSULE (FP) PO SCH ×2 (10:37→10:38)
[2019-05-30] MEDS: GABAPENTIN 300 MG CAPSULE PO SCH (10:37)
[2019-05-30] MEDS: SENNOSIDES 8.6MG TABLET (FP) PO SCH ×2 (10:37→10:41)
[2019-05-30] MEDS: DOCUSATE SODIUM 100 MG CAPSULE (FP) PO SCH (10:37)
[2019-05-30] MEDS: LISINOPRIL 20 MG TABLET (FP) PO SCH (10:38)
[2019-05-30] MEDS ORDERED: INSULIN (NOVOLOG) ASPART 100 UNITS/ML 10ML VIAL ONE (11:53)
--- NOTE | 2019-05-30 12:23 | ECHO ---
Version: 1 Name: YI ANTONY Exam: Adult Echocardiogram Study Date: 05/30/2019, 10:13 AM Age: 58 Years MMode/2D Measurements & Calculations IVSd: 2.03 cm LVIDs: 3.2 cm LVIDd: 4.3 cm LVPWd: 1.27 cm LAV (MOD-bp): 57.5 ml LVOT diam: 1.97 cm Ao root diam: 3.1 cm LA dimension: 2.6 cm Doppler Measurements & Calculations MV E max james: 92.2 cm/sec Med E/e': 23.5 MV A max james: 102.8 cm/sec Med Peak E' James: 3.9 cm/sec MV E/A: 0.90 Lat E/e': 20.7 Lat Peak E' James: 4.5 cm/sec Ao max P.3 mmHg Ao V2 max: 143.9 cm/sec TR max james: 201.3 cm/sec TR max P.2 mmHg Procedure The study was technically adequate with some images being suboptimal in quality. Left Ventricle There is severe asymmetric left ventricular hypertrophy. Grade I diastolic dysfunction, (abnormal re laxation pattern). Right Ventricle The right ventricle is normal in size and function. Atria Normal left and right atrial size and function. Mitral Valve The mitral valve is normal in structure and function. Tricuspid Valve The tricuspid valve is normal in structure and function. Aortic Valve The aortic valve is normal in structure and function. No hemodynamically significant valvular aortic stenosis. Pulmonic Valve The pulmonic valve is not well visualized. Great Vessels The aortic root is normal size. Pericardium/Pleura There is no pericardial effusion. Summary Statements There is severe asymmetric septal hypertrophy. Grade I diastolic dysfunction, (abnormal relaxation pattern). The right ventricle is normal in size and function. James Lehman 05/30/2019, 12:23 PM Ordering Physician: MOLLY CLEMENTE Performed By: Germaine Beyer
--- NOTE | 2019-05-30 15:10 | DS ---
Physical Exam: SUBJECTIVE: Patient seen and examined. He is in a better mood today and understands that his recovery will take time. Reports no improvement in left sided weakness as of yet. OBJECTIVE: Vital Signs Period Temp Pulse Resp BP Sys/Green Pulse Ox Last 24 Hr 97.7 F-98.1 F 76-93 20-20 155-194/80-110 98-98 PHYSICAL EXAM GENERAL: The patient is awake, alert, and fully oriented, in no acute distress. agitated. HEAD: Normal with no signs of trauma. EYES: PERRL, EOMI ENT: MMM NECK: Trachea midline, supple LUNGS: Breath sounds equal, clear to auscultation bilaterally, no wheezes, no crackles, no accessory muscle use. HEART: Regular rate and rhythm, S1, S2 without murmur, rub or gallop. ABDOMEN: Soft, nontender, nondistended, normoactive bowel sounds, no guarding EXTREMITIES: 2+ pulses, warm, well-perfused, no edema. NEUROLOGICAL: unable to complete as patient not cooperative with exam. Decreased sensation of left side of face and body. 2/5 strength up LUE and LLE. 5/5 strength RUE, RLE. No facial droop noted. PSYCH: agitated, annoyed mood SKIN: Warm, dry, normal turgor LABS Laboratory Results - last 24 hr 05/29/19 05/29/19 05/29/19 05:50 15:44 17:12 Carboxyhemoglobin 0.9 POC Glucometer 203 Erythropoietin 31.3 H 05/29/19 05/30/19 21:30 11:47 Carboxyhemoglobin POC Glucometer 252 154 Erythropoietin HOSPITAL COURSE: Date of Admission:05/27/19 Date of Discharge: 05/30/19 58 y/o M with PMHx of CVA (Residual LLE weakness since 2014), DM with neuropathy , HTN, HLD, Gout presented from home with b/l feet pain and worsening left sided weakness. Patient initially had a CT head done which was unrevealing. Follow up imaging with MRI and MRA revealed a acute small nonhemorrhagic infarct in the anterior aspect of R medulla and Ischemic changes 2/2 long standing HTN. Patient was outside the window for TPA on initial presentation to the ED. MRA of the neck showed a segment of left vertebral artery noted to be narrowed compared to right side. Minimal hypoplastic changes of the artery with no evidence of severe stenosis, a referral to Dr. Pires for further evaluation as outpatient was made. Patient was seen by Neurology while admitted. While admitted patient had labile BPs and was started on Metroprolol 25mg BID and his home medications were continued appropriately. Patient was also started on Gabapentin, daily ASA, and a high dose statin. Kidney function was seen to be elevated, as patient has uncontrolled DM and HTN this is likely due to co morbid condition, a referral was made for outpatient follow up. On initial presentation to the hospital labs showed polycythemia which improved with hydration. However as polcythemia can increase risk of stroke heme/onc was consulted, EPO level ordered, referral made for further outpatient workup. Patient stable to be discharged to rehab facility. Minutes to complete discharge: 36 Discharge Summary Problems reviewed: Yes Reason For Visit: TRANSIENT ISCHENIC ATTCK,CEREBRASCULAR ACCICENT Current Active Problems CVA (cerebral vascular accident) (Acute) TIA (transient ischemic attack) (Acute) Condition: Stable - Instructions Diet, Activity, Other Instructions: You presented to the hospital with new left sided weakness and were found to have a stroke on MRI imaging. You were seen by Neurology for further workup of your condition. You had a Carotid U/S done which was normal and an ECHO which showed asymmetric hypertrophy of your left ventricle and Grade I diastolic dysfunction. You were also seen by a sales recruiter as your labs on admission showed an elevated red blood cell count. Outpatient follow up is recommended as this can increase your risk of stroke. On MRA imaging of your neck you were found to have a hypoplastic left vertebral artery with no evidence of severe stenosis. Your home medications were appropriately continued while in the hospital and new medications were added as below. You are being discharged to a retirement facility to help strengthen your muscles and regain your function. Medication Changes: 1. You were started on Gabapentin 300mg BID, please take as prescribed 2. You were started on Atorvastatin 80mg daily, please take as prescribed as elevated cholesterol levels can increase your risk of stroke. 3. You were started on Metoprolol 25mg twice a day for better control your blood pressure. If you start to feel dizzy, lightheaded, have chest pain or any other concerns please stop taking the medication and contact your primary care doctor immediately or return to the ER. Follow up with the following physicians: 1. Please follow up with your primary care provider within one week of discharge. 2. Please follow up with Dr. Pérez, Neurology, within 1-2 weeks of discharge 3. Please follow up with Dr. Santillan, Hematology/Oncology, within one week for further workup of your elevated red blood cell count. (to discuss further testing including JAK2 mutation etc.) 4. Please follow up with your Pathology Transcriptionist for further management of your high blood pressure and further work up from the results of your Echocardiogram, if you do not have a Pathology Transcriptionist a referral has been included for Dr. Villareal, Cardiology. 5. Please follow up Dr. Pires for further evaluation of the findings on MRA imaging. 6. Advise outpatient follow up with take up operator to monitor your kidney function. referral to a take up operator FOLLOW UP BLOOD WORK; CBC, BMP in 1 week. Activity and Diet - You are strongly recommended close monitoring of your BP and blood sugars and adjustment of your medications with your doctor. It is very important that you maintain close follow up with your providers as mentioned above. - You are being discharged to a rehabilitation facility to help you recover from your stroke and strengthen your muscles. - Please continue to monitor your diet as you need to intake less salt and fatty foods and strict diabetic diet with blood glucose monitoring before meals and at bedtime. Continue all your other medications as prescribed Please return to the ER if you have any signs or symptoms of chest pain, dizziness, lightheadedness, shortness of breath, uncontrollable fever, chills, nausea, vomiting, numbness, tingling, or weakness in any part of your body, changes in vision, or slurred speech. Please return to the ER if symptoms persist, worsen, or new symptoms arise. Referrals: Denton Pérez MD [Staff Physician] - Conner Villareal MD [Staff Physician] - David Santillan MD [Staff Physician] - Jose Carlos Pires MD [Staff Physician] - Radha Melton MD [Primary Care Provider] - Rolanda Zaragoza MD [Staff Physician] - Disposition: PHYSICAL REHABILATION FACILITY - Home Medications Comprehensive Discharge Medication List: Ambulatory Orders Dulaglutide [Trulicity] 5 ml SQ WEEKLY 05/27/19 Empagliflozin [Jardiance] 10 mg PO DAILY 05/27/19 Insulin Glargine,Hum.rec.anlog [Lantus Solostar PEN -] 50 units SQ HS 05/27/19 Aspirin [ASA -] 81 mg PO DAILY #30 tab.chew 05/29/19 Atorvastatin Ca [Lipitor] 80 mg PO HS #30 tablet 05/29/19 Gabapentin [Neurontin -] 300 mg PO BID #60 capsule 05/29/19 Lisinopril/Hydrochlorothiazide [Lisinopril-Hctz 20-12.5 mg Tab] 1 each PO DAILY #30 tablet 05/30/19 Metoprolol Tartrate 25 mg PO BID #60 tablet 05/30/19 This patient is new to me today: No Emergency Visit: Yes ED Registration Date: 05/27/19 Care time: The patient presented to the Emergency Department on the above date and was hospitalized for further evaluation of their emergent condition. Critical Care patient: No - Discharge Referral Referred to [facility] Med P.C.: No ATTENDING PHYSICIAN STATEMENT I saw and evaluated the patient. I reviewed the resident's note and discussed the case with the resident. I agree with the resident's findings and plan as documented. SUBJECTIVE: OBJECTIVE: ASSESSMENT AND PLAN:
--- NOTE | 2019-05-30 17:15 | CONSULT ---
Consult - text type - Consultation Consultation Note: Asked to evaluate this 58 year old man admitted with leg pain and worsening left sided weakness. He has prior history of CVA with left leg weakness. Carotid Duplex and MRA were done and failed to show any stenosis. The right vertebral artery was smaller than left. MRI of brain documents new lacunar infarcts. He was not available for physical exam when I was on floor. Imp: There is no evidence for carotid stenosis. Asymmetric vertebral artery size is not unusual and of no clinical significance as long as adequate flow to the basilar artery is present. Transcranial Doppler (not available as inpatient ) is recommended to assess intracranial blood flow. Rec: No indication for vascular intervention at this time.
--- NOTE | 2019-05-30 17:18 | PN ---
Teaching Attending Note Name of Resident: Robb Alamo ATTENDING PHYSICIAN STATEMENT I saw and evaluated the patient. I reviewed the resident's note and discussed the case with the resident. I agree with the resident's findings and plan as documented with exceptions below. SUBJECTIVE: Patient seen and examined. pleasant, co-operative today. No new complaints. OBJECTIVE: Vital Signs Period Temp Pulse Resp BP Sys/Green Pulse Ox Last 24 Hr 97.7 F-98.1 F 76-93 20-20 155-194/80-110 98-98 Intake & Output 05/27/19 05/28/19 05/29/19 05/30/19 23:59 23:59 23:59 23:59 Intake Total 426 975 640 0 Balance 426 975 640 0 Weight 225 lb 12.8 oz 231 lb 4 oz 226 lb 1.6 oz 226 lb 7 oz General: sitting in bed, in no acute distress neck: soft, supple Chest: CTAB, no rales or wheezing Abdomen:Soft, Nt extremities: no edema Neuro: AAOx3, left sided weakness with some improvement, otherwise unchanged Home Medications Medication Instructions Recorded Dulaglutide [Trulicity] 5 ml SQ WEEKLY 05/27/19 Empagliflozin [Jardiance] 10 mg PO DAILY 05/27/19 Insulin Glargine,Hum.rec.anlog 50 units SQ HS 05/27/19 [Lantus Solostar PEN -] Aspirin [ASA -] 81 mg PO DAILY #30 tab.chew 05/29/19 Atorvastatin Ca [Lipitor] 80 mg PO HS #30 tablet 05/29/19 Gabapentin [Neurontin -] 300 mg PO BID #60 capsule 05/29/19 Lisinopril/Hydrochlorothiazide 1 each PO DAILY #30 tablet 05/30/19 [Lisinopril-Hctz 20-12.5 mg Tab] Metoprolol Tartrate 25 mg PO BID #60 tablet 05/30/19 Active Medications Aspirin (Asa -) 81 mg PO DAILY ON LICENSE OF [facility] Last Admin: 05/30/19 10:37 Dose: 81 mg Atorvastatin Calcium (Lipitor -) 80 mg PO HS ON LICENSE OF [facility] Last Admin: 05/29/19 21:41 Dose: 80 mg Docusate Sodium (Colace -) 100 mg PO DAILY ON LICENSE OF [facility] Last Admin: 05/30/19 10:37 Dose: 100 mg Gabapentin (Neurontin -) 300 mg PO BID ON LICENSE OF [facility] Last Admin: 05/30/19 10:37 Dose: 300 mg Heparin Sodium (Porcine) (Heparin -) 5,000 unit SQ TID ON LICENSE OF [facility] Last Admin: 05/30/19 14:49 Dose: 5,000 unit Hydrochlorothiazide (Hctz -) 12.5 mg PO DAILY ON LICENSE OF [facility] Last Admin: 05/30/19 10:38 Dose: 12.5 mg Insulin Aspart (Novolog Vial Sliding Scale -) 1 vial SQ ACHS ON LICENSE OF [facility]; Protocol Last Admin: 05/30/19 11:50 Dose: 2 units Insulin Detemir (Levemir Vial) 50 units SQ HS ON LICENSE OF [facility] Last Admin: 05/29/19 21:41 Dose: 50 units Lisinopril (Prinivil) 20 mg PO DAILY ON LICENSE OF [facility] Last Admin: 05/30/19 10:38 Dose: 20 mg Metoprolol Tartrate (Lopressor -) 25 mg PO BID ON LICENSE OF [facility] Last Admin: 05/30/19 10:37 Dose: 25 mg Senna (Senna -) 1 tab PO BID ON LICENSE OF [facility] Last Admin: 05/30/19 10:41 Dose: Not Given Laboratory Results - last 24 hr 05/29/19 05/29/19 05/30/19 05:50 21:30 11:47 POC Glucometer 252 154 Erythropoietin 31.3 H 05/30/19 16:58 POC Glucometer 311 Erythropoietin Abdominal US/2D echo results reviewed telemetry NSVT (19 beats) asymptomatic. ASSESSMENT AND PLAN: 58 year old male with history of prior CVA with some residual LLE weakness ( ambulates independently), DM 2 with Neuropathy, HTN, HLD, Gout, CKD, presents after waking this AM with bilateral LE and LUE burning and tingling sensation along with worsening LLE weakness precluding independent ambulation. He admits to random and erratic compliance with all medications including insulin and DM 2 meds. 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 Outpatient neurology/vascular surgery folow up. ASA/high intensity statin. Continue lisinopril/HCTZ. 2D echo/telemetry noted. start metoprolol 25 mg BID. patient/ report stress test in 07/2018 reportedly normal. A1c 8.8. Resume home regimen. Diabetic education/counseling. Speech/swallow eval noted. Renal function stable. Outpatient follow up. Home BP monitoring and medication compliance counseling. Gabapentin started hematology input noted, ASA, outpatient follow up for further testing, JAK2 mutation. EPO level noted. DVTPPX heparin PT eval noted, for acute rehab Dispo to acute rehab today Discussed with patient and , all questions answered.
== END 2019-05-30 18:20 | DRG 65 ==
LOC: JER 11:04 → JERBED 16:21 → J4W 18:52
PROVIDERS: ATTEND Hospitalist
DX: I63.9 Cerebral infarction, unspecified (principal); I69.354 Hemiplegia and hemiparesis following cerebral infarction affecting left non-dominant side; G45.9 Transient cerebral ischemic attack, unspecified; E11.65 Type 2 diabetes mellitus with hyperglycemia; I12.9 Hypertensive chronic kidney disease with stage 1 through stage 4 chronic kidney disease, or unspecified chronic kidney disease; N18.3 Chronic kidney disease, stage 3 (moderate); D75.1 Secondary polycythemia; E78.5 Hyperlipidemia, unspecified; E66.9 Obesity, unspecified; Z68.28 Body mass index [BMI] 28.0-28.9, adult; M10.9 Gout, unspecified; E11.42 Type 2 diabetes mellitus with diabetic polyneuropathy; R29.703 NIHSS score 3
CPT/HCPCS: 36415; 70450-TC; 70544-TC; 70547-TC; 70551-TC; 71045-TC-FY; 76700-TC; 80053; 81003; 82375; 82465; 82550; 82553; 82607; 82668; 82962; 83036; 83718; 83721; 83735; 84100; 84443; 84478; 84484; 85025; 85610; 85730; 86850; 86900; 86901; 93005; 93010; 93306-TC; 93880-TC; 97116-GP; 97162-GP; 99285-25; G0008; J1644; J7030; Q2036

== ENCOUNTER 2022-03-03 16:59 | Emergency (ER) | payer BC ==
[2022-03-03 17:27] VITALS: BP 186/98; PULSE 94; RESP 18; TEMP 98.4; BMI 29.9
[2022-03-03 19:30] LABS: BASO % 0.5 % (0-2.0); EOS % 2.1 % (0-4.5); HEMATOCRIT 44.9 % (35.4-49); LYMPH % 24.9 % (8-40); MCH 27.7 pg (25.7-33.7); MCHC 33.5 g/dl (32.0-35.9); MEAN CELL VOLUME 82.7 fl (80-96); MEAN PLT VOLUME 7.7 fl (7.5-11.1); MONO % 7.4 % (3.8-10.2); NEUT % 65.1 % (42.8-82.8); PLATELET COUNT 228 10^3/uL (134-434); RBC 5.43 M/mm3 (4.00-5.60); RDW 14.7 % (11.9-15.9)
[2022-03-03 19:43] LABS: PROTHROMBIN TIME (PATIENT) 11.5 SEC (9.7-13.0)
[2022-03-03 19:57] LABS: ALBUMIN 3.6 g/dl (3.4-5.0); BLOOD UREA NITROGEN 12.4 mg/dL (7-18); CALCIUM 8.8 mg/dL (8.5-10.1)
[2022-03-03 20:00] LABS: CREATININE 1.5 mg/dL (0.55-1.3)
[2022-03-03 20:02] LABS: BILIRUBIN,TOTAL 0.6 mg/dL (0.2-1)
== END 2022-03-03 21:44 | disposition left against medical advice (07) ==
LOC: JER 16:59
DX: I24.9 Acute ischemic heart disease, unspecified (principal)
CPT/HCPCS: 36415; 80053; 84484; 85025; 85379; 85610; 93005; 93010; 99284-25